=== PATIENT | female | born 1975 | race Caucasian/White ===

== ENCOUNTER 2025-04-19 08:09 | Inpatient (IN) | payer BC, SELFPAY ==
[2025-04-19] VITALS (9 sets, daily range): BP systolic 116–156; BP diastolic 70–105; PULSE 62–104; RESP 10–22; TEMP 36.4–37.1; O2SAT 98–100; BMI 20.1; BMI 22.5
--- NOTE | ~2025-04-19 | CT_ITS ---
EXAMINATION: CTA NECK WITH CONTRAST (STROKE) CTA BRAIN WITH CONTRAST (STROKE) CLINICAL INFORMATION: Seizure. Left-sided weakness. COMPARISON: Correlated to CT brain dated April 19, 2025. TECHNIQUE: CTA of the head and neck was performed in the axial plane from the mediastinum to the skull vertex using 70 mL Omnipaque 350 intravenous contrast. Additional reformatted multiplanar images including maximum intensity projection MIP images are generated on the CT workstation. This CT examination was performed using dose optimization techniques as appropriate, variously including the following: *Automated exposure control *Adjustment of mA and/or kV according to patient size (this includes techniques or standardized protocols for targeted exams where dose is matched to indication/reason for exam; i.e. extremities or head) *Use of iterative reconstruction technique DLP: 683 mGy centimeter. FINDINGS: The degree of stenosis determined by criteria similar to NASCET. Patient's motion artifact. Chest CTA: Normal diameter, normal patency without focal stenosis or intimal flap in the included aortic arch. Neck CTA: Right CCA: Normal patency. No focal stenosis. No intimal flap. Right ICA: Normal patency. No focal stenosis. No intimal flap. Left CCA: Normal patency. No focal stenosis. No intimal flap. Left ICA: Normal patency. No focal stenosis. No intimal flap. V1/V2 segments: Normal patency. No focal stenosis. No intimal flap. The origin is directly from the subclavian arteries. Codominant. Brain CTA: Anterior cerebral circulation: ICAs: Normal patency. No focal stenosis. No abrupt cut off. ICA terminus is normal, bilaterally. MCA's: Normal patency. No focal stenosis. No abrupt cut off. Bifurcation/trifurcation demonstrated no vascular irregularity. ACAs: Normal patency. No focal stenosis. No abrupt cut off. Anterior communicating artery is patent without vascular irregularity. Ophthalmic arteries are patent without vascular irregularity at the origin. Posterior communicating arteries are patent with small caliber and no vascular irregularity at the origin. Posterior cerebral circulation: V3/V4 segments: Normal patency. No focal stenosis. No intimal flap. Right posterior inferior cerebellar artery is patent and normal. There is a common trunk for the left anterior inferior and posterior inferior cerebellar arteries with normal patency. Basilar artery is patent without focal stenosis or intimal flap. Superior cerebellar arteries are patent. city dispatch supervisor: Normal patency. No focal stenosis. No abrupt cut off. Ancillary findings: Normal patency without intraluminal filling defects in the main cerebral venous sinuses. No gross abnormal enhancement in the intra-axial axial or extra-axial compartments of the cranium. Thyroid gland is small without dominant nodules. Status post ACDF C4 C6. Spondylosis C3-4 and C6-7. CT/CT angio head neck STROKE IMPRESSION: No main cerebral artery occlusion or embolus. No cerebral aneurysm. No high degree stenosis or dissection in the extracranial vessels. This critical test result is communicated to: Emergency department physician certified anesthesiologist assistant, Cecy Guzman via [employer] connect at 8:42 AM on April 19, 2025. Electronically signed by: Nicholas Alfred MD 04/19/2025 08:42 AM EDT
--- NOTE | ~2025-04-19 | MR_ITS ---
CLINICAL HISTORY: Headache; Blurry vision MR Brain without gadolinium Comparison: CT/SR - CT HEAD WITHOUT IV CONTRAST STROKE - 04/19/25 08:18 EDT Findings: No restricted diffusion (no acute ischemic event). No intra-axial mass or hemorrhage. No midline shift. No hydrocephalus. Vascular flow voids are intact. Orbital contents are unremarkable. The sinuses and mastoid air cells are clear. No focal bone lesion. IMPRESSION: Unremarkable brain MRI. This document has been electronically signed by: Charles Monahan MD on 04/19/2025 21:34:19
--- NOTE | ~2025-04-19 | CT_ITS ---
EXAMINATION: CT HEAD WITHOUT CONTRAST (STROKE PROTOCOL) CLINICAL INFORMATION: Seizure. Left-sided weakness. Concerning stroke COMPARISON: None available. TECHNIQUE: Contiguous axial imaging was performed from the skull base to vertex without intravenous administration of contrast. This CT examination was performed using dose optimization techniques as appropriate, variously including the following: *Automated exposure control *Adjustment of mA and/or kV according to patient size (this includes techniques or standardized protocols for targeted exams where dose is matched to indication/reason for exam; i.e. extremities or head) *Use of iterative reconstruction technique DLP: 643 mg centimeter. FINDINGS: Patient's motion artifact. No acute cortical disruption within the bony calvarium or the skull base. No acute intracranial hemorrhage, mass effect, midline shift, hydrocephalus or herniation. Kamara-white matter differentiation is normal. Posterior cranial fossa contents demonstrated no gross mass effect or hemorrhage. Normal position of the cerebellar tonsils. Sellar/suprasellar region demonstrated no gross masses. No air-fluid levels in the paranasal sinuses. Tympanic cavities and mastoid cells are aerated. No hematoma is in the intraconal or extraconal compartments of the cranium. CT/CT head for STROKE IMPRESSION: No acute fracture, bony calvarium. No acute intracranial hemorrhage. This critical result was communicated via [employer] with physician hospital administrative assistant in the emergency department, Cecy Guzman at 8:31 AM hours on April 19, 2025. It was ascertained that the content and urgency of the report was understood at the time of direct communication. Electronically signed by: Nicholas Alfred MD 04/19/2025 08:31 AM EDT
--- NOTE | 2025-04-19 08:18 | ECG_ITS ---
Test Reason : STROKE PROTOCOL Blood Pressure : */* mmHG Vent. Rate : 112 BPM Atrial Rate : 112 BPM P-R Int : 146 ms QRS Dur : 64 ms QT Int : 328 ms P-R-T Axes : 80 86 68 degrees QTcB Int : 447 ms Sinus tachycardia Possible Left atrial enlargement Septal infarct , age undetermined Abnormal ECG No previous ECGs available Referred By: Cecy Guzman Electronically Signed By: Trever Chavez
--- NOTE | 2025-04-19 08:29 | ED_ITS ---
HPI - Neuro Symptoms/Deficit General Chief Complaint: Stroke Stated Complaint: ?STROKE,LKWT/7:45,-THIN,L WEAK/DROOP Time Seen by Provider: 04/19/25 08:15 Source: patient, family (), EMS and old records reviewed Mode of arrival: EMS Limitations: no limitations History of Present Illness ED Provider: DR. 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 Patient stated no anticoagulation, no other medical issues. While patient getting a CT I was called into the CT table to evaluate the patient for a seizure, patient is AAO x3 aware that she is having shaking episode that she feels anxious, there is no LOC, no postictal symptoms, no urinary incontinence, no tonic-clonic movement, no tongue bite. Patient stated that usually stress or having her menstruation can trigger her symptoms and patient is having her menstruation Now. appeared in no concern of stroke. Related Data Allergies Allergy/AdvReac Type Severity Reaction Status Date / Time amitriptyline Allergy Unknown Unknown Verified 04/19/25 08:39 Review of Systems 2 Review of Systems: All other systems are reviewed and are negative Constitutional: Reports as per HPI and Reports no additional constitutional complaints Eyes: Reports as per HPI and Reports no additional eye complaints Reports system reviewed and no additional complaints, except as documented Cardiovascular: Reports as per HPI and Reports no additional cardiovascular complaints Respiratory: Reports as per HPI and Reports no additional respiratory complaints Gastrointestinal: Reports as per HPI and Reports no additional gastrointestinal complaints Genitourinary: Reports no additional female genitourinary complaints Musculoskeletal: Reports no additional musculoskeletal complaints Skin/Breast: Reports system reviewed and no additional complaints, except as docu Psychiatric: Reports no additional psychiatric complaints Endocrine: Reports no additional endocrine complaints Hematologic/Lymphatic: Reports no additional hematologic/lymphatic complaints Allergic/Immunologic: Reports no additional allergic/immunologic complaints Reports system reviewed and no additional complaints, except as documented and Reports Abnormal speech present [facility] Social History Social History Unable to assess alcohol history related to: Unknown Smoked in Last 30 Days: No Use of substances other than those prescribed or required for medical reasons: Unknown Advance Directives: Yes Advance Directives Information Provided: No Advance Directives on File: No Physical Exam 2 Vital Signs: Vital Signs: Last Vital Signs Temp 98.5 F 04/19/25 08:36 Pulse 89 04/19/25 10:30 Resp 16 04/19/25 10:30 BP 144/80 H 04/19/25 10:30 Pulse Ox 98 04/19/25 10:30 O2 Del Method Room Air 04/19/25 10:30 BMI result Body Mass Index 20.1 Vital signs have been reviewed and appear to be correct. Blood pressure elevated. Heart rate normal. Respiratory rate normal. Temperature normal. Oxygen saturation normal. Appearance: Alert. Oriented X3. No acute distress. Head: Normal external exam. Normocephalic. Atraumatic. No Matute signs noted. No raccoon eyes noted Eyes: PERRLA. EOMI. Conjunctiva and sclera normal. Eyelids normal. ENT: TM's Normal. Pharynx normal. Uvula midline. Moist mucous membranes. No trismus noted. No drooling noted. No muffled voice noted. Neck: Normal inspection. Neck supple. FROM. No adenopathy. Thyroid Normal. No meningeal signs. No neck mass noted. CVS: Normal heart rate and rhythm. Heart sound normal. No murmurs noted. Pulses normal throughout. Respiratory: No respiratory distress. Painless inspiration. Breath sounds normal. No wheezes/rales/rhonchi noted. Chest nontender. No accessory muscle usage noted or decreased air movement noted. Abdomen: Soft and nontender. Bowel sounds normal in all 4 quadrants. No distention noted. No organomegaly noted. No visible injury noted. Back: No CVA tenderness. Full range of motion noted. Skin: Skin warm and dry. Normal skin color. Normal skin turgor. No rashes/lesions/lacerations noted. Extremities: No lower extremity edema. Extremities exhibit normal range of motion. Extremities nontender. Neuro: Mental status: Normal attention, orientation, memory, and affect. Cranial nerves: Pupils are equal, round and reactive to light, EOMI, left facial hemiparesis, facial sensations are normal. Motor examination normal muscle tone, strength to 4 extremities, left hemiparesis.. DTR are +2, planter's are flexor. Sensory exam; normal coordination, no ataxia, gait stable. Cerebellar exam: Rfcizt-hu-nrqv and ukjp-yt-grqi is normal. Extrapyramidal system: No tremors, no rigidity with normal facial expressions. Pronator drift not present Course Reevaluation(s) Reevaluation #1: Case discussed with Dr. Dai patient is not a candidate for TNK, will treat underlying migraine. Time: 08:42 Reevaluation #2: Headache is better, patient's speech is improving, with improvement of the right hemiparesis, also at the bedside report improvement. Patient with a history of hemiplegic migraine making the patient not a candidate for TNK, the case was discussed and approved with Dr. Dai. Will admit the patient to medical floor for continuous neurological monitoring. Time: 12:16 Medications Administered Discontinued Medications Generic Name Dose Route Start Last Admin Trade Name Boubacar PRN Reason Stop Dose Admin Diazepam 10 mg 04/19/25 08:56 04/19/25 09:11 Diazepam 10 Mg/2 Ml Cartridge IVPUSH 04/19/25 08:57 10 mg STAT STA Administration Diphenhydramine HCl 25 mg 04/19/25 08:19 04/19/25 08:30 Diphenhydramine Hcl 50 Mg/Ml Vial IVPUSH 04/19/25 08:20 25 mg ONCE ONE Administration Hydromorphone HCl 1 mg 04/19/25 08:56 04/19/25 09:11 Hydromorphone Hcl 1 Mg/Ml Syringe IVPUSH 04/19/25 08:57 1 mg ONCE ONE Administration Protocol Hydromorphone HCl 1 mg 04/19/25 10:22 04/19/25 10:35 Hydromorphone Hcl 1 Mg/Ml Syringe IVPUSH 04/19/25 10:23 1 mg ONCE ONE Administration Protocol Sodium Chloride 1,000 mls @ 999 mls/hr 04/19/25 08:19 04/19/25 09:42 Ns IV 04/19/25 09:19 Infused .Q1H1M ONE Infusion Acetaminophen 1,000 mg in 100 mls @ 400 mls/hr 04/19/25 08:19 04/19/25 08:57 Ofirmev IV 04/19/25 08:33 Infused ONCE ONE Infusion Iohexol 100 ml 04/19/25 08:30 04/19/25 08:31 Iohexol 350 Mg/Ml 100 Ml Infus..Btl IV 04/19/25 08:31 70 ml ONCE ONE Administration Medical Decision Making Differential Diagnosis Differential Diagnoses: The differential diagnosis associated with the presentation includes (Hemorrhagic CVA, ischemic CVA, hemiplegic migraine, electrolyte derangement, severe anemia, ) Admission/Observation Consideration of admission/observation: Escalation of care including admission/observation considered Lab Data MDM Lab Attestation statement: I reviewed the patient's lab results. 04/19/25 08:49 04/19/25 08:49 Labs: Lab Results 04/19/25 04/19/25 04/19/25 Range/Units 08:11 08:20 08:49 WBC 4.9 (4.8-10.8) X10*3/uL RBC 3.97 L (4.20-5.50) X10*6/uL Hgb 12.5 (12.0-16.0) g/dl Hct 35.1 L (37.0-47.0) % MCV 88.4 (80.0-98.0) fL MCH 31.5 (27.0-33.0) pg MCHC 35.6 H (31.0-35.0) g/dl RDW 12.2 (11.0-16.0) % Plt Count 345 (160-400) X10*3/uL MPV 9.4 (9.4-12.3) fL Immature Gran % (Auto) 0.2 (0.0-0.4) % Neut % (Auto) 45.3 (45-73) % Lymph % (Auto) 45.4 H (20-40) % Bandera % (Auto) 7.5 (2-11) % Eos % (Auto) 0.8 (0-4) % Baso % (Auto) 0.8 (0-2) % Lymph # (Auto) 2.2 (1.2-4.9) X10*3/uL Bandera # (Auto) 0.4 (0.1-1.2) X10*3/uL Eos # (Auto) 0.0 (0.0-0.4) X10*3/uL Baso # (Auto) 0.0 (0.0-0.2) X10*3/uL Abs Immat Gran (auto) 0.01 (0.00-0.03) X10*3/uL Absolute Neuts (auto) 2.2 (2.0-8.3) x10*3/uL Absolute Nucleated RBC 0.000 (0.0-0.012) X10*3/uL Nucleated RBC % (auto) 0.0 (0.0-0.2) /100WBC PT 11.6 (10.9-12.4) SEC Whole Blood PT 11.8 (11.1-13.5) sec INR 1.0 (0.9-1.1) Whole Blood INR 1.0 (0.9-1.1) APTT 34.4 H (26.7-34.1) SEC Sodium 139 (135-145) mmol/L Potassium 4.1 (3.3-5.1) mmol/L Chloride 108 (96-108) mmol/L Carbon Dioxide 23 (22-29) mmol/L Anion Gap 12 (12-20) BUN 13 (9-16) mg/dL Creatinine 0.72 (0.5-1.4) mg/dL Estim Creat Clear Calc 69.4 Estimated GFR > 60 POC Glucose 73 (60-115) mg/dL Random Glucose 76 (60-115) mg/dL Calcium 9.0 (8.4-10.2) mg/dL Troponin I High Sens < 2.7 (<3.5-17.0) ng/L Triglycerides 58 (<150) mg/dL Cholesterol 153 (<200) mg/dL LDL Cholesterol, Calc 94 (<100) mg/dL HDL Cholesterol 48 (>40) mg/dL Independent Interpretation I performed an independent interpretation of an: CT Scan (Head/neck CTA/plain CT:No acute fracture, bony calvarium. No acute intracranial hemorrhage. No main cerebral artery occlusion or embolus. No cerebral aneurysm. No high degree stenosis or dissection in the extracranial vessels.) Radiology Impression Discussion of test interpretation with radiology: I have reviewed the radiologist's reading. NIH Stroke Scale Time: 08:39 Level of Consciousness: Alert Level of Consciousness Questions: Answers both questions correctly Level of Consciousness Commands: Performs both tasks correctly Best Gaze: Normal Visual: No visual loss Facial Palsy: Partial paralysis Motor Arm (Right): No drift Motor Arm (Left): Some effort against gravity Motor Leg (Right): No drift Motor Leg (Left): Some effort against gravity Limb Ataxia: Absent Sensory: Normal Best Language: Mild to moderate aphasia Dysarthia: Normal Extinction and Inattention: No abnormality Score: 7 Critical Care Time Critical Care Time Critical Care Time: Yes Total Critical Care Time: 60 Attestation: The patient was critically ill with a high probability of imminent or life- threatening deterioration. I spent greater than 30 minutes of discontinuous time evaluating the patient, delivering critical care at the bedside, discussing evaluating data with consultants. Critical care time does not include time spent performing separately billable procedures or teaching. Time spent performing critical care was 60 minutes. Discharge Plan Discharge Clinical Impression: Hemiplegic migraine Patient Disposition: Admitted As Inpatient Print Language: Sami
[2025-04-19 08:30] LABS: Prothrombin Time Whole Bld POC 11.8 sec (11.1-13.5); ~PT, ~INR - Anti Coag Clinic 1.0 (0.9-1.1)
[2025-04-19] MEDS: iohexoL 350 MG/ML 100 ML INFUS..BTL IV (08:31)
[2025-04-19 08:54] LABS: MANUAL DIFF FLAG NO
[2025-04-19 08:56] LABS: Hematocrit 35.1 % (37.0-47.0); Hemoglobin 12.5 g/dl (12.0-16.0); Imm Gran Abs Auto 0.01 X10*3/uL (0.00-0.03); Imm Gran Pct Auto 0.2 % (0.0-0.4); Lymphocytes Absolute Auto 2.2 X10*3/uL (1.2-4.9); Mean Corpuscular HGB Conc 35.6 g/dl (31.0-35.0); Mean Corpuscular Hemoglobin 31.5 pg (27.0-33.0); Mean Corpuscular Volume 88.4 fL (80.0-98.0); NRBC Abs Auto 0.000 X10*3/uL (0.0-0.012); NRBC Pct Auto 0.0 /100WBC (0.0-0.2); Platelet Count 345 X10*3/uL (160-400); Red Blood Count 3.97 X10*6/uL (4.20-5.50); White Blood Count 4.9 X10*3/uL (4.8-10.8)
[2025-04-19 09:02] LABS: INTERNATIONAL NORM RATIO 1.0 (0.9-1.1); Prothrombin Time 11.6 SEC (10.9-12.4)
[2025-04-19 09:05] LABS: Partial Thromboplastin Time 34.4 SEC (26.7-34.1); Stroke Lab Use COMPLETE
--- NOTE | 2025-04-19 09:09 | MHC.STROKE ---
Notified of Stroke Alert in ED. Met patient on EMS stretcher as she was heading into CT scan. Per EMS pt was at work and had sudden onset of left sided weakness and left sided facial droop. LKWT approx 0750. Upon further information gathering from spouse, pt has hx of hemiplegic migraines. He reports that she has had a migraine for approximately 3 days and utilizing OTC meds. She also uses Nurtec injections. Reports that she has fusions to her neck and that her doctors are investigating whether or not she has nerve impingement due to that. Stroke Education still reviewed with patient and spouse. Protocol explained. Pt/spouse agreeable to plan. Pt also noted to have mild tremors. Slight delay in obtaining CT due to question of seizure activity. DR. Mays went to CT scan and it was determined that the patient in fact was NOT having a seizure. Will continue to assist and provide education as needed. Dr. Dai was consulted on this case by DR. Mays. All parties agreeable to current plan in place. Pt is not a TNK candidate per neurology.
[2025-04-19 09:11] LABS: Anion Gap 12 (12-20); Blood Urea Nitrogen 13 mg/dL (9-16); Calcium 9.0 mg/dL (8.4-10.2); Carbon Dioxide 23 mmol/L (22-29); Chloride 108 mmol/L (96-108); Cholesterol 153 mg/dL (<200); Creatinine Clr Calc Pharmacy 69.4; Estimated Glomerular Filt Rate > 60; HDL Cholesterol 48 mg/dL (>40); Potassium 4.1 mmol/L (3.3-5.1); Sodium 139 mmol/L (135-145); Triglycerides 58 mg/dL (<150)
[2025-04-19] MEDS: diazePAM 10 MG/2 ML CARTRIDGE IVPUSH (09:11)
[2025-04-19 09:21] LABS: Troponin-I High Sensitivity < 2.7 ng/L (<3.5-17.0)
[2025-04-19 09:26] LABS: Glucose, Whole Blood 73 mg/dL (60-115)
--- OUTSIDE RECORDS SUMMARY | 2025-04-19 10:05 | XMS_ITS | Encounter Summary ---
Author Organization [facility] [place] [facility] Address [address] [place] [address] Care Team Providers Care Animal Chiropractor Name Role Phone Aramis Morales MD Primary Care Provider [phone] Encounter Details Date Type Department Care Team (Late st Contact Info) Description 01/18/2018 Scanned Document [facility] Neurosurgery [place] [address] [facility] 5 [place] [phone] Garrison Varghese MD [address] [place] [address] 5 [place] [address] Social History Tobacco Use Types Packs/Day Years Used Date Smoking Tobacco: Never Smokeless Tobacco: Never Alcohol Use Standard Drinks/Week Comments Yes 1 (1 standard drink = 0.6 oz pur e alcohol) Comments Unknown Sex and Gender Information Value Date Recorded Sex Assigned at Not on file Legal Sex Female 10:52 AM EDT Gender Identity Not on file Sexual Orientation Not on file documented as of this encounter Plan of Treatment Not on file documented as of this encounter Visit Diagnoses Not on filedocumented in this encounter Care Teams Animal Chiropractor Relationship Specialty Start Date End Date Aramis Morales MD [address] [place] [address] PCP - General Internal Medicine 03/16/17 documented as of this encounter
--- OUTSIDE RECORDS SUMMARY | 2025-04-19 10:05 | XMS_ITS | Encounter Summary ---
Author Organization [facility] Address [address] [place] [address] Care Team Providers Care Oral Surgery Technician Name Role Phone Aramis Morales MD Primary Care Provider [phone] Encounter Details Date Type Department Care Team (Latest Contact Info) Description 09/10/2017 Prep for Surgery [facility] Neurosurgery [place] [phone] Pina Orellana PA [address] [place] [id number] Sacroiliac dysfunction (Primary Dx) Social History Tobacco Use Types Packs/Day Years Used Date Smoking Tobacco: Never Assessed Comments Unknown Sex and Gender Information Value Date Recorded Sex Assigned at Not on file Legal Sex Female 10:52 AM EDT Gender Identity Not on file Sexual Orientation Not on file documented as of this encounter Plan of Treatment Not on file documented as of this encounter Visit Diagnoses Diagnosis Sacroiliac dysfunction- Primary Nonallopathic lesion of sacral region, not elsewhere classified documented in this encounter Care Teams Oral Surgery Technician Relationship Specialty Start Date End Date Aramis Morales MD [address] [place] [address] PCP - General Internal Medicine 03/16/17 documented as of this encounter
--- OUTSIDE RECORDS SUMMARY | 2025-04-19 10:05 | XMS_ITS | Encounter Summary ---
Author Organization [facility] Address [address] [place] [address] Care Team Providers Care Pcu Rn Name Role Phone Aramis Morales MD Primary Care Provider [phone] Encounter Details Date Type Department Care Team (Late st Contact Info) Description 10/25/2017 Scanned Document [facility] Neurosurgery [place] [address] [facility] [address] [place] [address] Garrison Varghese MD 35 [facility] 5 [place] [address] Social History Tobacco Use Types Packs/Day Years [...] on filedocumented in this encounter Care Teams Pcu Rn Relationship Specialty Start Date End Date Aramis Morales MD [address] [place] [address] PCP - General Internal Medicine 03/16/17 documented as of this encounter
--- OUTSIDE RECORDS SUMMARY | 2025-04-19 10:05 | XMS_ITS | Encounter Summary ---
Author Organization [facility] Address [address] [place] [address] Care Team Providers Care Assorter Name Role Phone Aramis Morales MD Primary Care Provider [phone] Encounter Details Date Type Department Care Team (Late st Contact Info) Description 01/17/2018 Scanned Document [facility] Neurosurgery [place] [phone] Pina Orellana PA [address] [place] [phone] Social History Tobacco Use Types Packs/Day Years [...] on filedocumented in this encounter Care Teams Assorter Relationship Specialty Start Date End Date Aramis Morales MD [address] [place] [address] PCP - General Internal Medicine 03/16/17 documented as of this encounter
--- OUTSIDE RECORDS SUMMARY | 2025-04-19 10:05 | XMS_ITS | Clinical Summary ---
Author Organization [facility] it Address [address] [place] [address] Care Team Providers Care Knife Cutter Name Role Phone Aramis Morales MD Primary Care Provider Unavaila ble Surgical History Surgery Date Site/Laterality Comments LEG SURGERY PROCEDURE: HISTORICAL LEG SURGERY; COMMENT: ACL replacement @ 17 yrs; RIGHT OTHER SURGICAL HISTORY PROCEDURE: ---- OTHER ----; COMMENT: heller myotomy OTHER SURGICAL HISTORY Left PROCEDURE: HISTORY OTHER; COMMENT: sacro iliac fusion 2017 OTHER SURGICAL HISTORY 2019 PROCEDURE: HISTORY OTHER; COMMENT: Anterior approach for cervical disc 2020 in [place] ESOPHAGOGASTRODUODENOSCOPY PROCEDURE: WI EGD TRANSORAL BIOPSY SINGLE/MULTIPLE; COMMENT: Performed by Dr. Ann on October 13, 2019 Medical History Medical History Date Comments Headache(784.0) 03/24/2009 DX:Headache(784. 0) Achalasia DX:Achalasia Heartburn DX:Heartburn Acid reflux DX:Acid reflux Esophagitis DX:Esophagitis Family History Medical History Relation Name Comments Heart attack Aunt 1 Maternal; 6 tot al; quadruple bypass Heart attack Aunt 2 Paternal; survi ann marie it; stents Heart attack Father Diabetes Father's side Dad's 2 sister s Heart failure Maternal Grandmother deceas ed age 50 Diabetes Mother Uterine cancer Mother Diabetes Mother's side Mom's sister a nd brother Heart failure Paternal Grandfather deceas ed age 62 Ovarian cancer Paternal Grandmother Heart attack Uncle 1 Maternal; decea sed Heart attack Uncle 2 Maternal; survi ann marie it Breast cancer Neg Hx Colon cancer Neg Hx Relation Name Status Comments Aunt 1 Aunt 2 Brother Alive complications d iverticulitis; liver disease; asthma Father Alive cardiac issues Father's side Maternal Grandfather Maternal Grandmother Mother Alive diabetic lactos e intol Mother's side Paternal Grandfather Paternal Grandmother Son Alive healthy Uncle 1 Uncle 2 Social History Tobacco Use Types Packs/Day Years Used Date Smoking Tobacco: Never Smokeless Tobacco: Never Alcohol Use Standard Drinks/Week Comments Yes 0 (1 standard drink = 0.6 oz pur e alcohol) Comments Unknown Sex and Gender Information Value Date Recorded Sex Assigned at Not on file Legal Sex Female 3:08 PM EST Gender Identity Not on file Sexual Orientation Not on file Obstetrics History Plan of Treatment Health Maintenance Due Date Last Done Comments Breast Cancer Screening 1977 Hepatitis B Vaccines (1 of 3 - 19+ 3-dose series) 1996 Pneumococcal Vaccine: Pediat rics (0 to 5 Years) and At-Risk Patients (6 to 49 Years) (1 of 2 - PCV) 1996 Cervical Cancer Screening: P ap Smear 1998 DTaP,Tdap,and Td Vaccines (2 - Td or Tdap) 02/19/2020 02/18/2010 Colorectal Cancer Screening: Colonoscopy 06/24/2022 HIV Screening 06/24/2022 Hepatitis C Screening 06/24/2022 Social Influencers of Health Screening 06/24/2022 Depression Screening 07/26/2024 COVID-19 Vaccine (1 - 2023-2 5 season) 2025 Influenza Vaccine (#1) 2025 HIB Vaccines Aged Out No longer eligi ble based on patient's age to complete this topic HPV Vaccines Aged Out No longer eligi ble based on patient's age to complete this topic Hepatitis A Vaccines Aged Out No long er eligible based on patient's age to complete this topic IPV Vaccines Aged Out No longer eligi ble based on patient's age to complete this topic MMR Vaccines Aged Out No longer eligi ble based on patient's age to complete this topic Meningococcal ACWY Vaccine Aged Out N o longer eligible based on patient's age to complete this topic Meningococcal B Vaccine Aged Out No l onger eligible based on patient's age to complete this topic RSV Immunization Patients Un renee 20 months Aged Out No longer eligible b ased on patient's age to complete this topic Varicella Vaccines Aged Out No longer eligible based on patient's age to complete this topic Advance Directives Documents on File Type Date Recorded Patient Material Expeditor Expl anation Health Care Decision (hx) 01/11/2017 AD TAYLOR DIRECTIVE Health Care Decision (hx) 01/11/2017 AD TAYLOR DIRECTIVE Care Teams Knife Cutter Relationship Specialty Start Date End Date Aramis Morales MD PCP - General 10/19/1997
--- OUTSIDE RECORDS SUMMARY | 2025-04-19 10:05 | XMS_ITS | Encounter Summary ---
Author Organization [facility] Address [address] [place] [address] Care Team Providers Care Automatic Buffer Name Role Phone Aramis Morales MD Primary Care Provider [phone] Encounter Details Date Type Department Care Team (Latest Contact Info) Description 04/12/2017 Prep for Surgery [facility] Neurosurgery [place] [phone] Pina Orellana PA [address] [place] [phone] Sacroiliac joint dysfunction of left side (Primary Dx) Social History Tobacco Use Types [...] of this encounter Visit Diagnoses Diagnosis Sacroiliac joint dysfunction of left side- Primary documented in this encounter Care Teams Automatic Buffer Relationship Specialty Start Date End Date Aramis Morales MD [address] [place] [address] PCP - General Internal Medicine 03/16/17 documented as of this encounter
--- OUTSIDE RECORDS SUMMARY | 2025-04-19 10:05 | XMS_ITS | Encounter Summary ---
Author Organization [facility] Address [address] [place] [address] Care Team Providers Care Electrician Technician Name Role Phone Aramis Morales MD Primary Care Provider [phone] Encounter Details Date Type Department Care Team (Late st Contact Info) Description 10/25/2017 Scanned Document [facility] Neurosurgery [place] 35 [facility] [address] [place] [address] Garrison Varghese MD 35 [facility] 5 [place] [address] Social History Tobacco Use Types Packs/Day Years [...] on filedocumented in this encounter Care Teams Electrician Technician Relationship Specialty Start Date End Date Aramis Morales MD [address] [place] [address] PCP - General Internal Medicine 03/16/17 documented as of this encounter
--- OUTSIDE RECORDS SUMMARY | 2025-04-19 10:05 | XMS_ITS | Encounter Summary ---
Author Organization [facility] Address [address] [place] [address] Care Team Providers Care Blackener Name Role Phone Aramis Morales MD Primary Care Provider [phone] Encounter Details Date Type Department Care Team (Late st Contact Info) Description 04/15/2017 Scanned Document [facility] Neurosurgery [address] [place] [address] Garrison Varghese MD 35 [facility] 5 [place] [address] Social History Tobacco Use Types Packs/Day Years [...] on filedocumented in this encounter Care Teams Blackener Relationship Specialty Start Date End Date Aramis Morales MD [address] [place] [address] PCP - General Internal Medicine 03/16/17 documented as of this encounter
--- OUTSIDE RECORDS SUMMARY | 2025-04-19 10:05 | XMS_ITS | Encounter Summary ---
Author Organization [facility] Address [address] [place] [address] Care Team Providers Care Checker Dump Grounds Name Role Phone Aramis Morales MD Primary Care Provider [phone] Encounter Details Date Type Department Care Team (Late st Contact Info) Description 08/14/2019 Scanned Document [facility] Neurosurgery [address] [phone] Social History Tobacco Use Types Packs/Day Years [...] on filedocumented in this encounter Care Teams Checker Dump Grounds Relationship Specialty Start Date End Date Aramis Morales MD [address] [place] [address] PCP - General Internal Medicine 03/16/17 documented as of this encounter
--- OUTSIDE RECORDS SUMMARY | 2025-04-19 10:05 | XMS_ITS | Encounter Summary ---
Author Organization [facility] Address [address] [place] [address] Care Team Providers Care Authorization Manager Name Role Phone Aramis Morales MD Primary Care Provider [phone] Encounter Details Date Type Department Care Team (Late st Contact Info) Description 02/01/2020 Scanned Document [facility] Neurosurgery [address] [phone] Social History Tobacco Use Types Packs/Day Years Used Date Smoking Tobacco: Never Smokeless Tobacco: Never Alcohol Use Standard Drinks/Week Comments Yes 1 (1 standard drink = 0.6 oz pur e alcohol) Comments No Sex and Gender Information Value Date Recorded Sex Assigned at Not on file Legal Sex Female 10:52 AM EDT Gender Identity Not on file Sexual Orientation Not on file COVID-19 Exposure Response Date Recorded In the last month, have you been in contact with someone who was confirmed or suspected to have Coronavirus / COVID-19? No / Unsure 02/01/2020 1:32 PM EDT documented as of this encounter Plan of Treatment Not on file documented as of this encounter Visit Diagnoses Not on filedocumented in this encounter Care Teams Authorization Manager Relationship Specialty Start Date End Date Aramis Morales MD [address] [place] [address] PCP - General Internal Medicine 03/16/17 documented as of this encounter
--- OUTSIDE RECORDS SUMMARY | 2025-04-19 10:05 | XMS_ITS | Encounter Summary ---
Author Organization [facility] Address [address] [place] [address] Care Team Providers Care Tile Picker Name Role Phone Aramis Morales MD Primary Care Provider [phone] Encounter Details Date Type Department Care Team (Late st Contact Info) Description 01/18/2018 Scanned Document [facility] Neurosurgery [place] 35 [facility] 5 [place] [phone] Garrison Varghese MD [address] [place] [address] 5 [place] [address] Social History Tobacco Use Types Packs/Day Years [...] on filedocumented in this encounter Care Teams Tile Picker Relationship Specialty Start Date End Date Aramis Morales MD [address] [place] [address] PCP - General Internal Medicine 03/16/17 documented as of this encounter
--- OUTSIDE RECORDS SUMMARY | 2025-04-19 10:05 | XMS_ITS | Encounter Summary ---
Author Organization [facility] Address [address] [place] [address] Care Team Providers Care Coverstitch Elastic Attacher Name Role Phone Aramis Morales MD Primary Care Provider [phone] Encounter Details Date Type Department Care Team (Late st Contact Info) Description 10/12/2017 Scanned Document [facility] Neurosurgery [address] [place] [address] Garrison Varghese MD 35 [facility] 5 [place] [address] Social History Tobacco Use Types Packs/Day Years [...] on filedocumented in this encounter Care Teams Coverstitch Elastic Attacher Relationship Specialty Start Date End Date Aramis Morales MD 4 [place] [address] PCP - General Internal Medicine 03/16/17 documented as of this encounter
--- OUTSIDE RECORDS SUMMARY | 2025-04-19 10:05 | XMS_ITS | Encounter Summary ---
Author Organization [facility] Address [address] [place] [address] Care Team Providers Care Golf Course Starter Name Role Phone Aramis Morales MD Primary Care Provider [phone] Encounter Details Date Type Department Care Team (Late st Contact Info) Description 08/06/2020 Scanned Document [facility] Neurosurgery [address] [phone] Social History Tobacco Use Types [...] on filedocumented in this encounter Care Teams Golf Course Starter Relationship Specialty Start Date End Date Aramis Morales MD [address] [place] [address] PCP - General Internal Medicine 03/16/17 documented as of this encounter
--- OUTSIDE RECORDS SUMMARY | 2025-04-19 10:05 | XMS_ITS | Encounter Summary ---
Author Organization [facility] Address [address] [place] [address] Care Team Providers Care General Utility Worker Name Role Phone Aramis Morales MD Primary Care Provider [phone] Encounter Details Date Type Department Care Team (Late st Contact Info) Description 08/15/2019 Scanned Document [facility] Neurosurgery [address] 5 [place] [phone] Katherine Robles MA [address] [place] [address] Social History Tobacco Use Types Packs/Day Years [...] on filedocumented in this encounter Care Teams General Utility Worker Relationship Specialty Start Date End Date Aramis Morales MD 4 [place] [address] PCP - General Internal Medicine 03/16/17 documented as of this encounter
--- OUTSIDE RECORDS SUMMARY | 2025-04-19 10:05 | XMS_ITS | Encounter Summary ---
Author Organization [facility] Address [address] [place] [address] Care Team Providers Care Mine Geologist Name Role Phone Aramis Morales MD Primary Care Provider [phone] Encounter Details Date Type Department Care Team (Late st Contact Info) Description 07/13/2019 Scanned Document [facility] Neurosurgery [address] [phone] Garrison Varghese MD [address] [place] [address] 5 [place] [address] Social History Tobacco Use Types Packs/Day Years [...] on filedocumented in this encounter Care Teams Mine Geologist Relationship Specialty Start Date End Date Aramis Morales MD 4 [place] [address] PCP - General Internal Medicine 03/16/17 documented as of this encounter
--- OUTSIDE RECORDS SUMMARY | 2025-04-19 10:05 | XMS_ITS | Encounter Summary ---
Author Organization [facility] Address [address] [place] [address] Care Team Providers Care Php Architect Name Role Phone Aramis Morales MD Primary Care Provider [phone] Encounter Details Date Type Department Care Team (Late st Contact Info) Description 08/11/2019 Scanned Document [facility] Neurosurgery [address] [phone] Social History Tobacco Use Types [...] on filedocumented in this encounter Care Teams Php Architect Relationship Specialty Start Date End Date Aramis Morales MD [address] [place] [address] PCP - General Internal Medicine 03/16/17 documented as of this encounter
--- OUTSIDE RECORDS SUMMARY | 2025-04-19 10:05 | XMS_ITS | Clinical Summary ---
Author Organization [facility] Address [address] [place] [address] Care Team Providers Care Training Lead Name Role Phone Aramis Morales MD Primary Care Provider [phone] Allergies Active Allergy Reactions Criticality Noted Date Comments Amitriptyline Delirium/Confusion/P sych osis Low 11/20/2010 Psychiatric side effects Medications albuterol (PROVENTIL) (0.083%) 2.5 mg/3 mL nebulizer solution Inhale 2.5 mg every 4 (four) hours as needed. 7 Active fluticasone (FloVENT HFA) 220 mcg/puff inhaler Inhale 2 puffs 2 (two) times a day. 7 Active albuterol (PROVENTIL HFA; VENTOLIN HFA) 108 (90 Base) MCG/ACT inhaler Inhale 2 puffs every 4 (four) hours as needed. 7 Active Multiple Vitamins-Minerals (MULTIVITAMIN WOMEN PO) Take 1 tablet by mouth daily. Active SUMAtriptan (IMITREX) 100 MG tablet Take 100 mg by mouth once as needed. 8 Active galcanezumab-gnlm (EMGALITY) 120 MG/ML injectionIndicatio ns:Migraine Inject 1 IM under the skin every 30 days (once a month). Usually on the 16th of the month 9 Active OMEprazole (PriLOSEC) 20 MG capsuleIndications :Cervical stenosis of spinal canal Take 1 capsule (20 mg total) by mouth 2 (two) times a day. 60 capsule 0 Active acetaminophen (TYLENOL) 325 MG tabletIndications: Cervical stenosis of spinal canal Take 3 tablets (975 mg total) by mouth every 6 (six) hours around the clock. 360 tablet 0 Active docusate sodium 100 MG CapIndications:Cer vical stenosis of spinal canal Take 100 mg by mouth 2 (two) times a day. 90 capsule 0 Active ondansetron (ZOFRAN-ODT) 4 MG disintegrating tabletIndications: Cervical stenosis of spinal canal Take 1 tablet (4 mg total) by mouth 4 times daily (every 6 hours) as needed for nausea or vomiting. Place tablet on tongue to dissolve. 25 tablet 0 Active sucralfate (CARAFATE) 1 GM/10ML suspensionIndicati ons:Esophageal achalasia Take 10 mL (1 g total) by mouth 4 (four) times a day before meals and nightly. On an empty stomach. 420 mL 1 0 Active methylPREDNISolone (MEDROL DOSEPAK) 4 MG tabletIndications: Cervical stenosis of spine follow package directions 1 tablet 0 Active oseltamivir (TAMIFLU) 75 MG capsule TAKE 1 CAPSULE BY MOUTH TWICE A DAY FOR 5 DAYS 0 Active lidocaine (LIDODERM) 5 % patchIndications:C ervical stenosis of spinal canal APPLY PATCH ONTO THE SKIN & LEAVE ON FOR 12HRS THEN REMOVE *PATCH MAY REMAIN ON SKIN FOR 12HRS/DAY 30 patch 1 0 Active misoprostol (CYTOTEC) [address] two tablets in each check and hold for 20-30 minutes and then swallow 0 Active baclofen (LIORESAL) 20 MG tabletIndications: Cervical stenosis of spinal canal TAKE 1 TABLET (20 MG TOTAL) BY MOUTH 3 (THREE) TIMES A DAY. 90 tablet 1 Active Active Problems Problem Noted Date Diagnosed Date Cervical stenosis of spine 08/23/2019 Cervical stenosis of spinal canal 06/19/2019 Aftercare following surgery 01/14/2018 History of abnormal cervical Pap smear 8 Overview (03/02/2018): Last Assessment & Plan: Aletha reports LEEP in [address] Pizano at [facility] for HPV ; she was not clear that she had abnormal pap as well. She reports normal paps since at frequent intervals - last pap with [facility] in 2016 per her report and recommendation for 3 year pap. Will get records to review dx/findings and confirm plan, including pap/HPV screen in 2019. 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 Immunizations Immunization Administration Dates Next Due Influenza Inactivated/Split Preservative Free IM 08/27/2019() Social History Tobacco Use Types Packs/Day Years Used Date Smoking Tobacco: Never Smokeless Tobacco: Never Alcohol Use Standard Drinks/Week Comments Yes 1 (1 standard drink = 0.6 oz pur e alcohol) Comments No Sex and Gender Information Value Date Recorded Sex Assigned at Not on file Legal Sex Female 10:52 AM EDT Gender Identity Not on file Sexual Orientation Not on file Last Filed Vital Signs Vital Sign Reading Time Taken Comments Blood Pressure 128/100 09/08/2019 9:27 AM EST Pulse 76 09/08/2019 9:27 AM EST Temperature 37.1 C (98.7 F) 08/27/2019 2:36 PM EST Respiratory Rate 18 08/27/2019 2:36 PM EST Oxygen Saturation 96% 08/27/2019 2:36 PM EST Inhaled Oxygen Concentration - - Weight 71.2 kg (157 lb) 09/08/2019 9:27 AM EST Height 153.9 cm (5' 0.6 ) 09/08/2019 9:27 AM EST Body Mass Index 30.06 09/08/2019 9:27 AM EST Plan of Treatment Health Maintenance Due Date Last Done Comments Hepatitis C Virus Screening 1977 DTaP/Tdap/Td Vaccines (1 - Tdap) 1996 Hepatitis B Vaccines (1 of 3 - 19+ 3-dose series) 1996 Pap Smear (Ages 21-65) 1998 Mammogram 2017 Colonoscopy 2022 Influenza Vaccine 02/23/2025 COVID-19 Vaccine ( - 2023-2 5 season) 2025 HIV Screening Completed 02/02/2020 Pneumococcal Vaccine: Pediat zion (0-5 Years) and At-Risk Patients (6 to 49 Years) Aged Out No longer eligible b ased on patient's age to complete this topic Medical Devices Implanted Type Area Human Resources Clerk Device Identifier Shelf Expiration Date Model / Serial / Lot [id number] Cage Cervical Hijak [employer] [id number] - [id number] Implanted:Qty: 2 on 08/23/2019 by Garrison Varghese MD at [facility] Plate [employer] [id number] / / [id number] Plate Spine Cervical Anterior [id number] 2 Lvl 14mm Prebnt - [id number] Implanted:Qty: 1 on 08/23/2019 by Garrison Varghese MD at [facility] Plate [employer] - A MELVI AN [id number] / / [id number] Screw Bone Spine Ilium Pdcl Cd Hzn Lgc 14mm Ti Distraction - Sna Implanted:Qty: 2 on 08/23/2019 by Garrison Varghese MD at [facility] Spine [employer] MINIMALLY INVASIVE T 11/23/2021 [id number] / [id number] / [id number] Screw Bone Spine Cervical Anterior [place] 16mm Ti 4mm Self - [id number] Implanted:Qty: 4 on 08/23/2019 by Garrison Varghese MD at [facility] Spine [employer] - A MELVI AN [id number] / / [id number] Screw Bone Spine [place] 20- D 14mm Ti 4mm Self [place]ill [place] - [id number] Implanted:Qty: 2 on 08/23/2019 by Garrison Varghese MD at [facility] Spine [employer] - A MELVI AN [id number] / / Graft Bone Accell Dispersed Dbm 2.5ml Putty Void Filler - [id number] Implanted:Qty: 1 on 08/23/2019 by Garrison Varghese MD at [facility] Tissue SE[employer] 07/22/2020 / [id number] / [id number] Ifuse-3d Implanted:Qty: 1 on 11/17/2017 by Garrison Varhgese MD at [facility] Other 12/28/2022 [id number] / [id number] / [id number] Description:ifuse implnant s ystem [id number] implant Ifuse-3d [id number] Implant Implanted:Qty: 2 on 11/17/2017 by Garrison Varghese MD at [facility] Other 04/19/2022 [id number] / / [id number] Description:REF [facility] Insurance UMR LUCINDA STEINBERG [id number] UMR Advance Directives * Full Code (Latest Code Status on File) Date Activated Date Inactivated Comments 08/23/2019 6:34 PM * Full Code Date Activated Date Inactivated Comments 08/23/2019 10:40 AM 08/23/2019 6:34 PM * Full Code Date Activated Date Inactivated Comments 11/17/2017 2:47 PM 08/23/2019 9:02 AM * Full Code Date Activated Date Inactivated Comments 11/17/2017 7:23 AM 11/17/2017 2:47 PM Care Teams Training Lead Relationship Specialty Start Date End Date Aramis Morales MD [address] [place] [address] PCP - General Internal Medicine 03/16/17
--- OUTSIDE RECORDS SUMMARY | 2025-04-19 10:05 | XMS_ITS | Encounter Summary ---
Author Organization [facility] Address [address] [place] [address] Care Team Providers Care Quality Assurance Coordinator Name Role Phone Aramis oMrales MD Primary Care Provider [phone] Encounter Details Date Type Department Care Team (Late st Contact Info) Description 01/18/2018 Scanned Document [facility] Neurosurgery [place] 35 [facility] 5 [place] [phone] Garrison Varghese MD [address] [place] [address] 5 [place] [address] Social History Tobacco Use Types Packs/Day Years [...] on filedocumented in this encounter Care Teams Quality Assurance Coordinator Relationship Specialty Start Date End Date Aramis Morales MD [address] [place] [address] PCP - General Internal Medicine 03/16/17 documented as of this encounter
--- OUTSIDE RECORDS SUMMARY | 2025-04-19 10:05 | XMS_ITS | Encounter Summary ---
Author Organization [facility] Address [address] [place] [address] Care Team Providers Care Money Market Dealer Name Role Phone Aramis Morales MD Primary Care Provider [phone] Encounter Details Date Type Department Care Team (Late st Contact Info) Description 08/09/2017 Scanned Document [facility] Neurosurgery [address] 5 [place] [address] Garrison Varghese MD 35 [facility] 5 [place] [address] Social History Tobacco Use Types Packs/Day Years [...] on filedocumented in this encounter Care Teams Money Market Dealer Relationship Specialty Start Date End Date Aramis Morales MD 4 [place] [address] PCP - General Internal Medicine 03/16/17 documented as of this encounter
--- OUTSIDE RECORDS SUMMARY | 2025-04-19 10:05 | XMS_ITS | Encounter Summary ---
Author Organization [facility] Address [address] [place] [address] Care Team Providers Care Boat Hoist Operator Helper Name Role Phone Aramis Morales MD Primary Care Provider [phone] Encounter Details Date Type Department Care Team (Late st Contact Info) Description 08/15/2019 Scanned Document [facility] Neurosurgery [address] 5 [place] [phone] Katherine Robles MA [address] [place] [address] Social History Tobacco Use Types Packs/Day Years [...] on filedocumented in this encounter Care Teams Boat Hoist Operator Helper Relationship Specialty Start Date End Date Aramis Morales MD 4 [place] [address] PCP - General Internal Medicine 03/16/17 documented as of this encounter
--- OUTSIDE RECORDS SUMMARY | 2025-04-19 10:05 | XMS_ITS | Encounter Summary ---
Author Organization [facility] Address [address] [place] [address] Care Team Providers Care Boom Stick Man Name Role Phone Aramis Morales MD Primary Care Provider [phone] Encounter Details Date Type Department Care Team (Late st Contact Info) Description 08/09/2017 Scanned Document [facility] Neurosurgery [address] 5 [place] [address] Garrison Varghese MD 35 [facility] 5 [place] [address] Social History Tobacco Use Types Packs/Day Years [...] on filedocumented in this encounter Care Teams Boom Stick Man Relationship Specialty Start Date End Date Aramis Morales MD [address] [place] [address] PCP - General Internal Medicine 03/16/17 documented as of this encounter
--- OUTSIDE RECORDS SUMMARY | 2025-04-19 10:05 | XMS_ITS | Encounter Summary ---
Author Organization [facility] Address [address] [place] [address] Care Team Providers Care Infection Control Rn Name Role Phone Aramis Morales MD Primary Care Provider [phone] Encounter Details Date Type Department Care Team (Late st Contact Info) Description 12/22/2017 Scanned Document [facility] Neurosurgery [address] [address] [place], [place] [address] [address] Social History Tobacco Use Types Packs/Day Years [...] on filedocumented in this encounter Care Teams Infection Control Rn Relationship Specialty Start Date End Date Aramis Morales MD [address] [place] [address] PCP - General Internal Medicine 03/16/17 documented as of this encounter
--- OUTSIDE RECORDS SUMMARY | 2025-04-19 10:05 | XMS_ITS | Encounter Summary ---
Author Organization [facility] Address [address] [place] [address] Care Team Providers Care Miner Name Role Phone Aramis Morales MD Primary Care Provider [phone] Encounter Details Date Type Department Care Team (Late st Contact Info) Description 11/18/2017 Scanned Document [facility] Neurosurgery [place] 35 [facility] 5 [place] [phone] Garrison Varghese MD [address] [place] [address] 5 [place] [address] Social History Tobacco Use Types Packs/Day Years [...] on filedocumented in this encounter Care Teams Miner Relationship Specialty Start Date End Date Aramis Morales MD [address] [place] [address] PCP - General Internal Medicine 03/16/17 documented as of this encounter
--- OUTSIDE RECORDS SUMMARY | 2025-04-19 10:05 | XMS_ITS | Encounter Summary ---
Author Organization [facility] Address [address] [place] [address] Care Team Providers Care Motion Picture Printer Name Role Phone Aramis Morales MD Primary Care Provider [phone] Encounter Details Date Type Department Care Team (Late st Contact Info) Description 04/15/2017 Scanned Document [facility] Neurosurgery [address] 5 [place] [address] Garrison Varghese MD 35 [facility] 5 [place] [address] Social History Tobacco Use Types Packs/Day Years [...] on filedocumented in this encounter Care Teams Motion Picture Printer Relationship Specialty Start Date End Date Aramis Morales MD 4 [place] [address] PCP - General Internal Medicine 03/16/17 documented as of this encounter
--- OUTSIDE RECORDS SUMMARY | 2025-04-19 10:05 | XMS_ITS | Encounter Summary ---
Author Organization [facility] Address [address] [place] [address] Care Team Providers Care Nutrition Representative Name Role Phone Aramis Morales MD Primary Care Provider [phone] Encounter Details Date Type Department Care Team (Late st Contact Info) Description 04/15/2017 Scanned Document [facility] Neurosurgery [address] 5 [place] [address] Garrison Varghese MD 35 [facility] 5 [place] [address] Social History Tobacco Use Types Packs/Day Years [...] on filedocumented in this encounter Care Teams Nutrition Representative Relationship Specialty Start Date End Date Aramis Morales MD 4 [place] [address] PCP - General Internal Medicine 03/16/17 documented as of this encounter
--- OUTSIDE RECORDS SUMMARY | 2025-04-19 10:05 | XMS_ITS | Encounter Summary ---
Author Organization [facility] Address [address] [place] [address] Care Team Providers Care Circular Head Saw Operator Name Role Phone Aramis Morales MD Primary Care Provider [phone] Encounter Details Date Type Department Care Team (Late st Contact Info) Description 07/17/2019 Scanned Document [facility] Neurosurgery [address] [address] Social History Tobacco Use Types [...] on filedocumented in this encounter Care Teams Circular Head Saw Operator Relationship Specialty Start Date End Date Aramis Morales MD [address] [place] [address] PCP - General Internal Medicine 03/16/17 documented as of this encounter
--- OUTSIDE RECORDS SUMMARY | 2025-04-19 10:05 | XMS_ITS | Encounter Summary ---
Author Organization [facility] Address [address] [place] [address] Care Team Providers Care Ems Instructor Name Role Phone Aramis Morales MD Primary Care Provider [phone] Encounter Details Date Type Department Care Team (Late st Contact Info) Description 12/23/2017 Scanned Document [facility] Neurosurgery [place] 35 [facility] 5 [place] [phone] Garrison Varghese MD [address] [place] [address] 5 [place] [address] Social History Tobacco Use Types Packs/Day Years [...] on filedocumented in this encounter Care Teams Ems Instructor Relationship Specialty Start Date End Date Aramis Morales MD [address] [place] [address] PCP - General Internal Medicine 03/16/17 documented as of this encounter
--- OUTSIDE RECORDS SUMMARY | 2025-04-19 10:05 | XMS_ITS | Encounter Summary ---
Author Organization [facility] Address [address] [place] [address] Care Team Providers Care Field Appraiser Name Role Phone Aramis Morales MD Primary Care Provider [phone] Encounter Details Date Type Department Care Team (Late st Contact Info) Description 07/10/2019 Scanned Document [facility] Neurosurgery [address] [phone] Social History Tobacco Use Types [...] on filedocumented in this encounter Care Teams Field Appraiser Relationship Specialty Start Date End Date Aramis Morales MD [address] [place] [address] PCP - General Internal Medicine 03/16/17 documented as of this encounter
--- OUTSIDE RECORDS SUMMARY | 2025-04-19 10:05 | XMS_ITS | Encounter Summary ---
Author Organization [facility] Address [address] [place] [address] Care Team Providers Care Secondary Special Education Teacher Name Role Phone Aramis Morales MD Primary Care Provider [phone] Encounter Details Date Type Department Care Team (Late st Contact Info) Description 10/25/2017 Scanned Document [facility] Neurosurgery [place] 35 [facility] [address] [place] [address] Garrison Varghese MD 35 [facility] 5 [place] [address] Social History Tobacco Use Types Packs/Day Years [...] on filedocumented in this encounter Care Teams Secondary Special Education Teacher Relationship Specialty Start Date End Date Aramis Morales MD 4 [place] [address] PCP - General Internal Medicine 03/16/17 documented as of this encounter
--- OUTSIDE RECORDS SUMMARY | 2025-04-19 10:05 | XMS_ITS | Encounter Summary ---
Author Organization [facility] Address [address] [place] [address] Care Team Providers Care Parts Runner Name Role Phone Aramis Morales MD Primary Care Provider [phone] Encounter Details Date Type Department Care Team (Late st Contact Info) Description 11/09/2017 Scanned Document [facility] Neurosurgery [place] [address] [facility] 5 [place] [address] Garrison Varghese MD 35 [facility] 5 [place] [address] Social History Tobacco Use Types Packs/Day Years [...] on filedocumented in this encounter Care Teams Parts Runner Relationship Specialty Start Date End Date Aramis Morales MD [address] [place] [address] PCP - General Internal Medicine 03/16/17 documented as of this encounter
--- OUTSIDE RECORDS SUMMARY | 2025-04-19 10:05 | XMS_ITS | Encounter Summary ---
Author Organization [facility] Address [address] [place] [address] Care Team Providers Care Manager Case Name Role Phone Aramis Morales MD Primary Care Provider [phone] Encounter Details Date Type Department Care Team (Late st Contact Info) Description 11/24/2017 Scanned Document [facility] Neurosurgery [address] [address] [place], [place] [address] [address] Social History Tobacco Use Types Packs/Day Years [...] on filedocumented in this encounter Care Teams Manager Case Relationship Specialty Start Date End Date Aramis Morales MD [address] [place] [id number] PCP - General Internal Medicine 03/16/17 documented as of this encounter
--- OUTSIDE RECORDS SUMMARY | 2025-04-19 10:05 | XMS_ITS | Encounter Summary ---
Author Organization [facility] Address [address] [place] [address] Care Team Providers Care Heel Turner Name Role Phone Aramis Morales MD Primary Care Provider [phone] Encounter Details Date Type Department Care Team (Late st Contact Info) Description 08/14/2019 Scanned Document [facility] Neurosurgery [address] [id number] Social History Tobacco Use Types [...] on filedocumented in this encounter Care Teams Heel Turner Relationship Specialty Start Date End Date Aramis Morales MD [address] [place] [address] PCP - General Internal Medicine 03/16/17 documented as of this encounter
--- NOTE | 2025-04-19 12:51 | PM.NEUROCN ---
History of Present Illness Data of Consult Service Date: 04/19/25 Primary Care Provider: Pricila Ellis PA-C HPI Reason for consult: Hemiparesis Aletha is a 49-year-old female patient with a past medical history of hemiplegic migraine who was brought in to the emergency room from work for left-sided hemiparesis and slurred speech. This episode started approximately 20 minutes before coming to the hospital while she was at work. Leading up to this event, she and her do report that she had several visual auras and related migraine headaches days leading up to today. She is currently on her menses and prior migraine episodes have worsened during the time of her menses. She is currently working with a neurologist, Dr. Almeida who has her on Ajovy 225 mg once monthly injections for prevention and Nurtec 75 mg as needed. She has also tried Emgality in the past which seemed to work well however she stopped it due to a and her insurance would no longer cover it. Ajovy seemingly has been working well to control her migraines however over the course of last few months she has been averaging 5 migraines per month. Again, she has had several hemiplegic migraines in the past with her initial migraine presenting with bilateral paresthesias and subsequent hemiplegic migraines presenting as left-sided hemiparesis with slurred speech, and left-sided facial droop. Her workup has so far included a CT head and CTA head and neck both of which were nonacute. It is unclear whether or not she has had a recent MRI of the brain at an outside facility. While in our CT scanner, she was noted to have a shaking episode. The patient stated that she felt anxious. There was no LOC, no postictal symptoms, no urinary incontinence, no tonic-clonic movement, or tongue biting. She has received Valium, Dilaudid, and Benadryl during her visit here and is currently drowsy though she is able to provide some of her history with the assistance from her . Review of Systems Review of Systems: Yes all other systems are reviewed and are negative Neurologic: Reports Sensory deficit (Neuro) (Left upper and lower extremity anesthesia of skin.) [facility] Social History Social History Unable to assess alcohol history related to: Unknown Smoked in Last 30 Days: No Use of substances other than those prescribed or required for medical reasons: Unknown Advance Directives: Yes Advance Directives Information Provided: No Advance Directives on File: No Meds Allergies Allergy/AdvReac Type Severity Reaction Status Date / Time amitriptyline Allergy Unknown Unknown Verified 04/19/25 08:39 Home Medications ?Medication ?Instructions ?Recorded ?Confirmed ?Last Taken ?Type fluoride (sodium) 1.1 % dental 1 appl PO DAILY 04/19/25 Unknown History paste fremanezumab-vfrm 225 mg/1.5 mL 225 mg subcut Q28D 04/19/25 Unknown History subcutaneous auto-injector (Ajovy) meloxicam 7.5 mg tablet 7.5 mg PO DAILY PRN low back pain 04/19/25 Unknown History rimegepant 75 mg disintegrating 75 mg PO ONCE PRN migraine 04/19/25 Unknown History tablet (Nurtec ODT) semaglutide (weight loss) 2.4 2.4 mg subcut QWEEK 04/19/25 Unknown History mg/0.75 mL subcutaneous pen injector (Wegovy) Physical Exam Vital Signs: Vital Signs: Last Vital Signs Temp 98.5 F 04/19/25 08:36 Pulse 89 04/19/25 10:30 Resp 16 04/19/25 10:30 BP 144/80 H 04/19/25 10:30 Pulse Ox 98 04/19/25 10:30 O2 Del Method Room Air 04/19/25 10:30 BMI result Body Mass Index 20.1 Const: Orientation/consciousness: oriented to person, oriented to place and oriented to time HEENT: Mouth: other (Left facial droop) Back/Spine/Pelvis: Cervical Spine: cervical spasm Neuro: General: oriented to person, oriented to place, oriented to time and Unable to assess gait Cranial nerves: No Facial sensation intact/muscles of mastication intact (Left sided anesthesia v1-v3 (greatest at v2-v3)) and Yes Other cranial nerve findings present (L facial droop) Speech: Other speech findings present (Neuro) (slow) Gait exam (Neuro): Unable to assess gait Motor exam (neuro): strength not 5/5 throughout and Other motor observations present (Left hemiparesis- upper and lower extremity) Sensory Exam: Sensory deficit (Neuro) (Left upper and lower extremity anesthesia of skin.) Deep tendon reflexes (DTR's): Right triceps reflex intensity grade: 2+, Left triceps reflex intensity grade: 2+, Rt Biceps (C5, C6): 2+, Left biceps reflex intensity grade: 2+, Right brachioradialis reflex intensity grade: 2+, Left brachioradialis reflex intensity grade: 2+, Right patellar reflex intensity grade: 2+, Left patellar reflex intensity grade: 2+, Right ankle reflex intensity grade: 2+ and Left ankle reflex intensity grade: 2+ Plantar Reflex Responses: equivocal: bilateral Psych: Affect: normal affect Attitude: cooperative Results Labs 04/19/25 08:49 04/19/25 08:49 Labs: Short CBC 04/19/25 Range/Units 08:49 WBC 4.9 (4.8-10.8) X10*3/uL Hgb 12.5 (12.0-16.0) g/dl Hct 35.1 L (37.0-47.0) % Plt Count 345 (160-400) X10*3/uL BMP 04/19/25 08:49 Sodium 139 Potassium 4.1 Chloride 108 Carbon Dioxide 23 BUN 13 Creatinine 0.72 Calcium 9.0 Assessment and Plan (1) Hemiplegic migraine: Status: Acute Plan Aletha is a 49-year-old female patient with a past medical history of hemiplegic migraine who was brought in to the emergency room from work for left-sided hemiparesis and slurred speech. Her presentation is consistent with her prior history of hemiplegic migraine. CT and CTA imaging nonacute. I would however recommend non-contrast MRI of the brain if she has not had a recent MRI scan. She is currently still experiencing hemiparesis and becoming uncomfortable. If hemiparesis continues, could consider Depakote 500 mg IVP. Patient however is quite somnolent and therefore this should be considered before administration. Episodes have seemingly been triggered by hormonal fluctuations. She is currently on her menses. Other things that she be considered include autoimmune disorders. I will order an DOMINIK, double-stranded DNA, and ESR. Patient plans to follow up with her neurologist outpatient where they can consider/discuss other means of preventive therapies. Procedures Date of Service Date of Service: 04/19/25
--- NOTE | 2025-04-19 14:08 | PM.IMHP ---
History of Present Illness Date of Service: 04/19/25 Attending physician on admission: Kavin Tran Chief Complaint: left side weakness This is a 49-year-old female with history of cervical spine fusion and hemiplegic migraines who presents to the emergency department with left-sided weakness. 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 She received IV Dilaudid, IV Benadryl, IV Valium but continued to have persistent symptoms. She reports having increasing frequency in her migraines., she has had 3 or 4 hemiplegic migraines in the past 3-1/2 years. Overall her migraines seem to improve after she had fusion of C4-C6 in 2019 but over the past few months her symptoms seem to be worsening. She follows with Neurology at [facility]. Her brain MRI 6 months ago was reportedly stable. Due to persistent symptoms she will be admitted for further management. Review of Systems Review of Systems: Yes all other systems are reviewed and are negative Constitutional: Constitutional: Denies chills and Denies fever(s) Cardiovascular: Cardiovascular: Denies chest pain and Denies palpitations Endocrine: Endocrine: Denies palpitations PMFSH Medical History Hemiplegic migraine GERD (gastroesophageal reflux disease) Achalasia Migraine Social History Alcohol intake: current Alcohol intake frequency: holidays/special occasions only Patient Tobacco Use Status: Never used Tobacco Meds Allergies Allergy/AdvReac Type Severity Reaction Status Date / Time amitriptyline Allergy Unknown Unknown Verified 04/19/25 08:39 Active Medications: Current Medications Acetaminophen (Acetaminophen 325 Mg Tablet) 650 mg PO Q6H PRN PRN Reason: Pain, Mild 1-3,fever,headache Calcium Carbonate (Calcium Carbonate 750 Mg Tab.Chew) 750 mg PO Q4H PRN PRN Reason: Heartburn Magnesium Hydroxide (Milk Of Magnesia 30 Ml Oral.Susp) 30 ml PO DAILY PRN PRN Reason: Constipation Melatonin (Melatonin 3 Mg Tablet) 6 mg PO BEDTIME PRN PRN Reason: Insomnia Sodium Chloride (0.9 % Sodium Chloride Flush 3 Ml Syringe) 3 ml IVFLUSH QSHIFT STACY Home Medications ?Medication ?Instructions ?Recorded ?Confirmed ?Last Taken ?Type fremanezumab-vfrm 225 mg/1.5 mL 225 mg subcut Q28D 04/19/25 Unknown History subcutaneous auto-injector (Ajovy) meloxicam 7.5 mg tablet 7.5 mg PO DAILY PRN low back pain 04/19/25 Unknown History omeprazole 20 mg tablet,delayed 20 mg PO BID 04/19/25 04/19/25 04/19/25 History release rimegepant 75 mg disintegrating 75 mg PO ONCE PRN migraine 04/19/25 Unknown History tablet (Nurtec ODT) semaglutide (weight loss) 2.4 2.4 mg subcut QWEEK 04/19/25 Unknown History mg/0.75 mL subcutaneous pen injector (Wegovy) Physical Exam Vital Signs and Narrative: Vital Signs: Last Vital Signs Temp 98 F 04/19/25 13:22 Pulse 78 04/19/25 13:22 Resp 18 04/19/25 13:22 BP 120/79 04/19/25 13:22 Pulse Ox 98 04/19/25 13:22 O2 Del Method Room Air 04/19/25 13:22 BMI result Body Mass Index 20.1 Const: General: alert and awake Nutritional Appearance: thin Orientation/consciousness: patient oriented x3 Resp: Effort & Inspection: normal respiratory effort, able to speak in complete sentences, no respiratory distress and no use of accessory muscles Cardio: Rate: regular rate GI: Inspection: No distended Palpation (GI): Soft to palpation Neuro: Other: unable to move left arm or left leg; left facial droop General: patient oriented x3 Results Labs 04/19/25 08:49 04/19/25 08:49 Labs: Laboratory Results - last 24 hr 04/19/25 04/19/25 04/19/25 08:11 08:20 08:49 MCV 88.4 MCH 31.5 MCHC 35.6 H RDW 12.2 Plt Count 345 MPV 9.4 Immature Gran % (Auto) 0.2 Neut % (Auto) 45.3 Lymph % (Auto) 45.4 H Mason % (Auto) 7.5 Eos % (Auto) 0.8 Baso % (Auto) 0.8 Lymph # (Auto) 2.2 Mason # (Auto) 0.4 Eos # (Auto) 0.0 Baso # (Auto) 0.0 Abs Immat Gran (auto) 0.01 Absolute Neuts (auto) 2.2 Absolute Nucleated RBC 0.000 Nucleated RBC % (auto) 0.0 PT 11.6 Whole Blood PT 11.8 INR 1.0 Whole Blood INR 1.0 APTT 34.4 H Anion Gap 12 Estim Creat Clear Calc 69.4 Estimated GFR > 60 POC Glucose 73 Random Glucose 76 Calcium 9.0 Troponin I High Sens < 2.7 Triglycerides 58 Cholesterol 153 LDL Cholesterol, Calc 94 HDL Cholesterol 48 Imaging Radiologist's Impressions: Impressions Head CT 04/19/25 08:18 IMPRESSION: No acute fracture, bony calvarium. No acute intracranial hemorrhage. This critical result was communicated via [employer] connect with physician assistant director of plant operations in the emergency department, Cecy Guzman at 8:31 AM hours on April 19, 2025. It was ascertained that the content and urgency of the report was understood at the time of direct communication. Electronically signed by: Nicholas Alfred MD 04/19/2025 08:31 AM EDT RP Head/Neck CTA 04/19/25 08:22 IMPRESSION: No main cerebral artery occlusion or embolus. No cerebral aneurysm. No high degree stenosis or dissection in the extracranial vessels. This critical test result is communicated to: Emergency department physician assistant director of plant operations, Cecy Guzman via [employer] connect at 8:42 AM on April 19, 2025. Electronically signed by: Nicholas Alfred MD 04/19/2025 08:42 AM EDT RP Assessment and Plan (1) Hemiplegic migraine: Status: Acute Plan This is a 49-year-old female with a history of hemiplegic migraine, cervical spine fusion from C4-C6 who presents to the emergency department with migraine and left hemiparesis Left-sided weakness Likely due to hemiplegic migraine No improvement with Dilaudid/Valium/Benadryl in the ED will treat with p.r.n. Fioricet, Toradol will attempt to obtain records from [facility] where she follows with Neurology Seen by neurology, no need for further imaging at this time, if worsening neurological symptoms, we will consider inpatient brain MRI Follow Neuro checks GERD Continue baseline medications DVT prophylaxis-mechanical devices Quality Stroke Does the patient have a stroke diagnosis?: No VTE Prior VTE?: No VTE Risk Level:: Medical - moderate - high VTE Device Contraindication: N/A - Device Ordered VTE Drug Contraindication: Treatment Not Indicated
--- NOTE | 2025-04-19 14:21 | PHA.MEDREC ---
Addendum entered by Celia Howard RPh 04/19/25 15:08: MED REC REVIEWED BY [facility] Louise verified with patient again that she is taking pulmicort 90 mcg 1 puff daily and patient said she fills at [facility] even though there is no recent pharmacy claim for it. Original Note: Pharmacy Consult ? Medication Reconciliation Pharmacy has completed the medication reconciliation. Spoke to patient and at bedside to confirm med list. confirmed Ajovy 225 mg p07veik, last dose 04/13/25, and Wegovy 2.4 mg every Wednesday, last dose 04/15/25. Patient states she takes Pulmicort inhaler however there is no claim history per [facility].
--- NOTE | 2025-04-19 14:28 | PC.NURSE ---
RN attempted bedside swallow. pt and do not feel comfortable attempting. ERUM gage made aware, requesting ST eval.
[2025-04-19] MEDS: 0.9 % Sodium Chloride Flush 3 ML SYRINGE IVFLUSH (16:11)
--- NOTE | 2025-04-19 16:25 | PC.NURSE ---
Patient unable to open mouth for swallow eval.
--- NOTE | 2025-04-19 19:02 | PC.NURSE ---
pt and family told nurse that she is still unable to open mouth and therefor cant take anything PO. Reached out to PA to see if we want to start mtn fluids. Instructed to wait for night doc. Also told PA that pt reports increasing mouth droop, and loss of vision in left eye. PA aware. Per previous nurse today there have been multiple attempts at swallow eval and pt has been unable to participate.
--- NOTE | 2025-04-19 19:26 | PC.NURSE ---
MD Fragoso summoned, now at bedside
[2025-04-19] MEDS: Valproic Acid (as Sodium Salt) 500 MG in Dextrose 5 % 50 ML 52.5 MG IV (19:44)
[2025-04-19] MEDS: Dextrose 5 % and Lactated Ring 1,000 ML 80 ML IVCONT (22:52)
[2025-04-20 03:55] VITALS: BP 130/76; PULSE 82; RESP 17; TEMP 36.4; O2SAT 97
[2025-04-20] MEDS: Butalb/Acetamin/Caff 50/325/40 TABLET 1 TAB PO ×2 (05:39→10:58)
[2025-04-20 06:57] VITALS: BP 124/65; PULSE 81; RESP 18; TEMP 37; O2SAT 98
[2025-04-20] MEDS: 0.9 % Sodium Chloride Flush 3 ML SYRINGE IVFLUSH (07:37)
--- NOTE | 2025-04-20 08:27 | MHC.CM.PN ---
CM met with Patient and her at bedside. Patient asked CM to speak with her /HCP/Wade. Patient lives in a house with her and 2 Sons, ages 3 and 19 years of age. 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 CM has initiated and will follow for dc planning. PCP is Dr. Pricila Cooper and will transport to home at dc.
[2025-04-20 11:01] VITALS: BP 140/87; PULSE 83; RESP 18; TEMP 36.8; O2SAT 98
[2025-04-20] MEDS: Dextrose 5 % and Lactated Ring 1,000 ML 80 ML IVCONT ×2 (11:05→23:41)
--- NOTE | 2025-04-20 11:24 | MHC.SL.SWA ---
Speech Pathologist Impression: Risk of Aspiration Due to: n/a Dysphasia Diet Status: Liquid Consistency and Strategies for Safe Swallow: Liquid Intake Recommendation: Thin Liquid Intake Strategies: Solid Food Consistency: Dietary Recommendations: Regular Additional Modifications to Solid Foods: Oral Medication Intake: Whole with Liquid Please contact the pharmacy regarding appropriate crushable or liquid drug formulations that are available whenever modified delivery is recommended. Compensatory Strategies and Precautions to be Taken for Safe Swallow: Supervision While Eating and Drinking for Safe Swallow: None Needed Foods to Avoid: Swallowing Recommended Treatments: Recommendation for Speech: NA:Typical Evaluation Comment: Patient has returned to base line s/p hemiplegic migraine, with all aspects of oral motor, swallow and speech WFL. Recommend START diet of REGULAR with THIN liquids, Pills whole with puree. Patient with history of GERD/Achalasia, should follow guidelines of remaining upright 30 minutes after meals. No further speech/swallow therapy needed will discharge order. MD/RD aware of recommendations by secure text, RN in person. Frequency/Duration: Date Range for Service Req: Timeline to reassess: Informatics Nurse Clinican/Clinical Fellow: No Supervisory Statement: I have reviewed and agree with the student/clinical fellow's documentation: N/A Speech Language Pathologist: Anabella Conroy M.A., CCC-BOARD TURNER
[2025-04-20 11:28] LABS: Anti Nuclear Antibody Screen NEGATIVE (NEGATIVE)
[2025-04-20] MEDS: Valproic Acid (as Sodium Salt) 500 MG in Dextrose 5 % 50 ML 55 MG IV (11:40)
--- NOTE | 2025-04-20 11:51 | HO.PM.IMPN ---
Subjective Subjective Date of Service: 04/20/25 Interval History: still with severe migraine and unable to move left side Physical Exam Exam: Exam: Alert oriented times 3, decrased strength on left side, appears in distress Vital Signs: Vital Signs: Last Vital Signs Temp 98.2 F 04/20/25 11:01 Pulse 83 04/20/25 11:01 Resp 18 04/20/25 11:01 BP 140/87 H 04/20/25 11:01 Pulse Ox 98 04/20/25 11:01 O2 Del Method Room Air 04/20/25 11:01 O2 Flow Rate 2 04/19/25 19:02 BMI result Body Mass Index 22.5 Objective Data Active Medications Acetaminophen (Acetaminophen 325 Mg Tablet) 650 mg PO Q6H PRN PRN Reason: Pain, Mild 1-3,fever,headache Acetaminophen/Butalbital/Caffeine (Butalb/Acetamin/Caff 50/325/40 Tablet) 1 tab PO Q4H PRN PRN Reason: Headache Last Admin: 04/20/25 10:58 Dose: 1 tab Documented By: SUMEET Calcium Carbonate (Calcium Carbonate 750 Mg Tab.Chew) 750 mg PO Q4H PRN PRN Reason: Heartburn Dextrose/Lactated Ringer's (D5lr) 1,000 mls @ 80 mls/hr IVCONT .[id number] [facility] Last Admin: 04/20/25 11:05 Dose: 80 mls/hr Documented By: SUMEET Valproic Acid 500 mg/ Dextrose 55 mls @ 55 mls/hr IV ONCE ONE Stop: 04/20/25 12:18 Last Admin: 04/20/25 11:40 Dose: 55 mls/hr Documented By: SUMEET Ketorolac Tromethamine (Ketorolac Tromethamine 15 Mg/Ml Vial) 15 mg IVPUSH Q6H PRN PRN Reason: Migraine Headache Last Admin: 04/20/25 08:40 Dose: 15 mg Documented By: SUMEET Magnesium Hydroxide (Milk Of Magnesia 30 Ml Oral.Susp) 30 ml PO DAILY PRN PRN Reason: Constipation Melatonin (Melatonin 3 Mg Tablet) 6 mg PO BEDTIME PRN PRN Reason: Insomnia Omeprazole (Omeprazole 20 Mg Capsule.Dr) 20 mg PO BID@0630,1630 [facility] Last Admin: 04/20/25 05:40 Dose: 20 mg Documented By: NOLVIA Sodium Chloride (0.9 % Sodium Chloride Flush 3 Ml Syringe) 3 ml IVFLUSH QSHIFT [facility] Last Admin: 04/20/25 07:37 Dose: 3 ml Documented By: SUMEET Labs 04/19/25 08:49 04/19/25 08:49 Labs: Laboratory Results - last 24 hr 04/19/25 13:14 ESR 6 DOMINIK Screen NEGATIVE Assessment and Plan (1) Hemiplegic migraine: Status: Acute Plan 49F PMH hemiplegic migraine presented with slurred speech, headache, left hemiparesis Acute recurrent left hemiplegic migraine Continue Fioricet, Toradol MRI negative Neuro following Trial of Depakote DVT prophylaxis-mechanical/early ambulation Full code reason for continued hospitalization:non resolution of migraine and hemiplegia Quality Stroke Does the patient have a stroke diagnosis?: No VTE Prior VTE?: No VTE Risk Level:: Medical - moderate - high VTE Device Contraindication: N/A - Device Ordered VTE Drug Contraindication: Treatment Not Indicated
[2025-04-20 15:06] VITALS: BP 114/77; PULSE 89; RESP 17; TEMP 36.8; O2SAT 95
[2025-04-20 19:44] VITALS: RESP 16
[2025-04-20 19:52] VITALS: BP 125/68; PULSE 89; RESP 20; TEMP 36.2; O2SAT 97
[2025-04-20] MEDS: diazePAM 10 MG/2 ML CARTRIDGE 5 MG IVPUSH (19:59)
--- NOTE | 2025-04-20 19:59 | PC.NURSE ---
Dilauded, Valum and Benadrl administered, pt RR is 16. at bedside, pulse O2 placed on pt finger.
[2025-04-21] VITALS: BP 100/63; PULSE 81; RESP 20; TEMP 36.7; O2SAT 97
[2025-04-21 04:00] VITALS: BP 105/73; PULSE 71; RESP 16; TEMP 36.1; O2SAT 97
[2025-04-21 07:39] VITALS: BP 125/69; PULSE 81; RESP 18; TEMP 36.2; O2SAT 96
[2025-04-21] MEDS: Butalb/Acetamin/Caff 50/325/40 TABLET 1 TAB PO ×2 (08:35→18:44)
--- NOTE | 2025-04-21 08:58 | PM.DS ---
DS: Providers Provider Date of Service: 04/22/25 Date of admission: 04/20/25 12:48 Date of discharge: 04/22/25 Primary care physician: Pricila Ellis PA-C DS: Diagnosis Discharge Diagnosis (1) Hemiplegic migraine: Status: Acute DS: Summary Hospital Course Hospital Course: from initial hpi: 49-year-old female with history of cervical spine fusion and hemiplegic migraines who presents to the emergency department with left-sided weakness. 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 She received IV Dilaudid, IV Benadryl, IV Valium but continued to have persistent symptoms. She reports having increasing frequency in her migraines., she has had 3 or 4 hemiplegic migraines in the past 3-1/2 years. Overall her migraines seem to improve after she had fusion of C4-C6 in 2019 but over the past few months her symptoms seem to be worsening. She follows with Neurology at [facility]. Her brain MRI 6 months ago was reportedly stable. Due to persistent symptoms she will be admitted for further management. hospital course: Patient was admitted for intractable migraine with acute recurrent left hemiplegic migraine. She was initially treated with hydromorphone, Benadryl, Valium, Toradol and did not improve. Neurology was consulted, recommended MRI and trial of Depakote. MRI was grossly negative but did show some FLAIR hyperintensities on the right consistent with migraine. Patient had mild improvement with Depakote but still required ongoing IV pain medication. Slowly headache started to improve and patient started to regain strength on left side. She is now feeling well enough go home and will follow up with Neurology/migraine specialist as outpatient. Time Attestation Discharge Coordination Time (in mins): 33 Quality: Safe Use of Opioids Does Pt have an Active Cancer Diagnosis on the Problem List?: No Quality: Stroke Does the patient have a stroke diagnosis?: No Physical Exam Exam: Exam: General: AO X 3, less distressed than previous Resp: CTA bilateral, no accessory muscles used CVS: S1,S2,RRR GI: soft, non tender, non distended Neuro: improving left sided strength Psych: appropriate affect, appropriate insight Vital Signs: Vital Signs: Last Vital Signs Temp 97.2 F 04/21/25 07:39 Pulse 81 04/21/25 07:39 Resp 18 04/21/25 07:39 BP 125/69 04/21/25 07:39 Pulse Ox 96 04/21/25 07:39 O2 Del Method Room Air 04/21/25 07:39 O2 Flow Rate 2 04/19/25 19:02 BMI result Body Mass Index 22.5 DS: Data Data Completed and Pending Labs on day of discharge: Laboratory Results - last 24 hr 04/19/25 13:14 DOMINIK Screen NEGATIVE DOMINIK Titer TNP DOMINIK Titer 2 TNP DOMINIK Titer 3 TNP DOMINIK Pattern TNP DOMINIK Pattern 2 TNP DOMINIK Pattern 3 TNP Discharge Plan Discharge Anticipated Discharge Date/Time: 04/21/25 08:57 Patient Disposition: Home, Self-Care Discharge Diagnosis: hemiplegic migraine Referrals: Pricila Cooper PA [Primary Care Provider, [facility]] - 1 Week Discharge Medications: Continued meloxicam 7.5 mg tablet 7.5 mg PO DAILY PRN (Reason: low back pain) Nurtec ODT 75 mg tablet,disintegrating 75 mg PO ONCE PRN (Reason: migraine) Ajovy Autoinjector 225 mg/1.5 mL auto-injector 225 mg SUBCUT Q28D Wegovy 2.4 mg/0.75 mL pen injector 2.4 mg subcut LANCASTER omeprazole 20 mg Tablet,Delayed Release (Dr/Ec) 20 mg PO BID Pulmicort Flexhaler 90 mcg/actuation Aerosol Powdr Breath Activated 1 inh INHALATION DAILY Discharge Orders: Discharge Order (Routine); Ordered 04/22/25 Ordered By: Chucho Stephens Diet: Advance to usual diet Activity on Discharge: As tolerated Stand Alone Forms: Patient Portal Discharge page Print Language: Tuvaluan Care Plan Goals: manage and prevent migraines Health Concerns: severe complicated migraines Plan of Treatment: continue home meds, follow up with neurology Assessment: see above
--- NOTE | 2025-04-21 11:04 | MHC.CM.PN ---
Addendum entered by Alondra Caraballo 04/21/25 13:28: Discharge cancelled for today per hospitalist. Original Note: Pt medically cleared for discharge home self-care, will arrange own transport home.
--- NOTE | 2025-04-21 12:22 | HO.PM.IMPN ---
Subjective Subjective Date of Service: 04/21/25 Interval History: attempted discharge today, but symptoms worsened, headache, difficulty ambulating Physical Exam Exam: Exam: General: AO X 3, less distressed than previous Resp: CTA bilateral, no accessory muscles used CVS: S1,S2,RRR GI: soft, non tender, non distended Neuro: improving left sided strength Psych: appropriate affect, appropriate insight Vital Signs: Vital Signs: Last Vital Signs Temp 97.2 F 04/21/25 07:39 Pulse 81 04/21/25 07:39 Resp 18 04/21/25 07:39 BP 125/69 04/21/25 07:39 Pulse Ox 96 04/21/25 07:39 O2 Del Method Room Air 04/21/25 07:39 O2 Flow Rate 2 04/19/25 19:02 BMI result Body Mass Index 22.5 Objective Data Active Medications Acetaminophen (Acetaminophen 325 Mg Tablet) 650 mg PO Q6H PRN PRN Reason: Pain, Mild 1-3,fever,headache Acetaminophen/Butalbital/Caffeine (Butalb/Acetamin/Caff 50/325/40 Tablet) 1 tab PO Q4H PRN PRN Reason: Headache Last Admin: 04/21/25 08:35 Dose: 1 tab Documented By: RITIKA Calcium Carbonate (Calcium Carbonate 750 Mg Tab.Chew) 750 mg PO Q4H PRN PRN Reason: Heartburn Dextrose/Lactated Ringer's (D5lr) 1,000 mls @ 80 mls/hr IVCONT .[id number] [facility] Last Admin: 04/21/25 11:01 Dose: Not Given Documented By: RITIKA Non-Admin Reason: No Access Ketorolac Tromethamine (Ketorolac Tromethamine 15 Mg/Ml Vial) 15 mg IVPUSH Q6H PRN PRN Reason: Migraine Headache Last Admin: 04/20/25 15:04 Dose: 15 mg Documented By: SUMEET Magnesium Hydroxide (Milk Of Magnesia 30 Ml Oral.Susp) 30 ml PO DAILY PRN PRN Reason: Constipation Melatonin (Melatonin 3 Mg Tablet) 6 mg PO BEDTIME PRN PRN Reason: Insomnia Omeprazole (Omeprazole 20 Mg Capsule.Dr) 20 mg PO BID@0630,1630 [facility] Last Admin: 04/21/25 06:25 Dose: 20 mg Documented By: SHINE Sodium Chloride (0.9 % Sodium Chloride Flush 3 Ml Syringe) 3 ml IVFLUSH QSHIFT [facility] Last Admin: 04/21/25 08:45 Dose: Not Given Documented By: RITIKA Non-Admin Reason: IV Running Labs 04/19/25 08:49 04/19/25 08:49 Labs: Laboratory Results - last 24 hr 04/19/25 13:14 DOMINIK Titer TNP DOMINIK Titer 2 TNP DOMINIK Titer 3 TNP DOMINIK Pattern TNP DOMINIK Pattern 2 TNP DOMINIK Pattern 3 TNP Assessment and Plan (1) Hemiplegic migraine: Status: Acute Plan 49F PMH hemiplegic migraine presented with slurred speech, headache, left hemiparesis Acute recurrent left hemiplegic migraine Continue Fioricet, Toradol MRI negative Neuro following s/p 2 doses Depakote DVT prophylaxis-mechanical/early ambulation Full code reason for continued hospitalization:non resolution of migraine and hemiplegia, unable to ambulate, still with severe headache Quality Stroke Does the patient have a stroke diagnosis?: No VTE Prior VTE?: No VTE Risk Level:: Medical - moderate - high VTE Device Contraindication: N/A - Device Ordered VTE Drug Contraindication: Treatment Not Indicated
[2025-04-21] MEDS: Valproic Acid (as Sodium Salt) 500 MG in Dextrose 5 % 50 ML 55 MG IV (13:46)
[2025-04-21 15:14] VITALS: BP 121/72; PULSE 86; RESP 20; TEMP 36.7; O2SAT 95
[2025-04-21 20:00] VITALS: BP 122/87; PULSE 81; RESP 20; TEMP 36.4; O2SAT 97
[2025-04-21] MEDS: Dextrose 5 % and Lactated Ring 1,000 ML 80 ML IVCONT (20:27)
[2025-04-22] VITALS: BP 104/59; PULSE 80; RESP 16; TEMP 36.1; O2SAT 97
[2025-04-22 04:00] VITALS: BP 102/58; PULSE 78; RESP 16; TEMP 36.3; O2SAT 95
[2025-04-22 07:03] VITALS: BP 117/72; PULSE 82; RESP 14; TEMP 36.4; O2SAT 97
[2025-04-22] MEDS: Butalb/Acetamin/Caff 50/325/40 TABLET 1 TAB PO (07:40)
[2025-04-22 11:41] VITALS: BP 121/64; PULSE 95; RESP 18; TEMP 36.6; O2SAT 99
--- NOTE | 2025-04-22 12:24 | MHC.CM.PN ---
PT IS MEDICALLY CLEARED FOR DISCHARGE HOME SELF-CARE, PT ARRANGED HAS ARRANGED HER OWN TRANSPORT HOME TODAY.
[2025-04-24 08:44] LABS: DNAds, Crithidia Antibody Negative (Negative)
== END 2025-04-22 14:55 | disposition home or self-care (01) | DRG 54 ==
LOC: HO.ED 12:22 → HO.EDOVER 12:38 → HO.IMC 19:20
PROVIDERS: Nurse Practitioner; Physician Assistant Medical; Admitting Provider Physician Assistant Medical; Emergency Provider Emergency Medicine; PCP Physician Assistant; Visit Provider Internal Medicine
DX: G43.409 Hemiplegic migraine, not intractable, without status migrainosus (principal); Z79.899 Other long term (current) drug therapy; Z98.1 Arthrodesis status
CPT/HCPCS: 36415; 70450; 70496; 70498; 70551; 80048; 80061; 82947; 84484; 85025; 85610; 85652; 85730; 86038; 86255; 92610; 93005; 99284; 99285; J0131; J1171; J1200; J1885; J3360; Q9967

== ENCOUNTER → 2025-04-19 08:18 | Outpatient (BNV) | payer BC, SELFPAY | PROVIDERS: Emergency Provider Emergency Medicine; Visit Provider Radiology Diagnostic Radiology | DX: R56.9 Unspecified convulsions (principal); R53.1 Weakness; R51.9 Headache, unspecified; H53.8 Other visual disturbances | CPT/HCPCS: 70450; 70496; 70498; 70551 ==

== ENCOUNTER → 2025-04-19 08:18 | Outpatient (BNV) | payer BC, SELFPAY | PROVIDERS: Admitting Provider Physician Assistant Medical; Emergency Provider Emergency Medicine; PCP Physician Assistant; Visit Provider Internal Medicine Cardiovascular Disease | DX: R00.0 Tachycardia, unspecified (principal) | CPT/HCPCS: 93010 ==

== ENCOUNTER → 2025-04-19 12:25 | Outpatient (BNV) | payer BC, SELFPAY | PROVIDERS: Admitting Provider Physician Assistant Medical; Emergency Provider Emergency Medicine; PCP Physician Assistant; Visit Provider Physician Assistant Medical | DX: G43.409 Hemiplegic migraine, not intractable, without status migrainosus (principal) | CPT/HCPCS: 99223; 99233 ==

== ENCOUNTER 2025-06-25 09:26 | Outpatient (AMB) | payer BC, SELFPAY ==
--- NOTE | 2025-06-25 09:28 | MHC.OFFVIS ---
Vital Signs 06/25/25 09:29 Height 5 ft 0.5 in Weight 107 lb BMI 20.6 BP 152/79 H Blood Pressure Location Lt brachial Position Sitting Respiration 16 Pulse 81 Pulse Source Pulse Oximeter Pulse Oximetry (%) 100 Oxygen Delivery Method Room Air Intake Visit Reasons: Disorder of Sacrum Director Of Logistics Required: No Allergies amitriptyline Allergy (Unknown, Verified 06/25/25 09:31) Unknown Medication List - Last Reconciled 06/25/25 by Cecy Mccray LPN budesonide 90 mcg/actuation (Pulmicort Flexhaler) 1 inh inhalation DAILY fremanezumab-vfrm (Ajovy) 225 mg subcut Q28D meloxicam 7.5 mg PO DAILY PRN omeprazole 20 mg PO BID rimegepant (Nurtec ODT) 75 mg PO ONCE PRN semaglutide (weight loss) (Wegovy) 2.4 mg subcut LANCASTER HPI HPI Disorder of Sacrum: Details: History of Present Illness The patient is a 49-year-old individual presenting for evaluation for a repeat left L5-S1 TF epidural injection and a right sacroiliac (SI) joint injection. The patient has a history of a left-sided L5-S1 herniated disc, which is thought to have developed in 2023 following a that ended in a miscarriage. The patient received a left L5-S1 TFESI on October 26, 2024, which significantly reduced the left leg pain, with relief lasting until March. The patient is now overdue for this injection. The patient's pain continues with an intensity of 5-8 out of 10, characterized by burning that is worse now than in 2023, and is exacerbated by weather changes, bending, and sitting. In addition to the disc herniation, the patient has a history of SI joint instability. The patient underwent a left SI joint fusion in 2017, which provided tremendous relief. The patient currently experiences pain in the right, unfused SI joint and received a therapeutic injection on December 21, 2024, which provided approximately 3 months of relief, wearing off around March. Past medical history is also notable for hemiplegic migraines and cervical degenerative disc disease, which required a neck fusion in 2019. 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 The pain significantly interferes with the patient's caretaking capacity as a mother. Pain Description - Onset: The L5-S1 associated pain began in 2023 after a and subsequent miscarriage. - Location: The patient reports more back pain than leg pain currently. - Radiation: Radicular pain with burning and numbness travels down the left leg. - Intensity: Pain level ranges from 5 to 8 out of 10. - Exacerbating Factors: Pain is worsened by weather changes, bending over, prolonged sitting, standing on hard floors, and lying flat at night. - Relieving Factors: Previous left L5-S1 epidural steroid injection and a right sacroiliac joint injection provided significant, temporary relief for over 3 months each. - Associated Symptoms: The patient uses a brace for support. - Interference with Function: Pain significantly interferes with caretaking duties and disrupts sleep, causing the patient to be constantly turning at night. Physical Exam - Musculoskeletal: On examination of the lumbar spine, there is pain in the axial lower back on forward flexion and extension is severely limited. - Musculoskeletal: Per report, tenderness to palpation over the right sacroiliac joint. - Musculoskeletal: The NIGEL test reproduces pressure in the right sacroiliac joint, and the SI joint compression test reproduces pain. - Neurologic: Straight leg raise is positive on the left side, reproducing a sensation of pressure. Results - Imaging: An MRI of the lumbar spine shows a herniated disc at L5-S1. - Imaging: The MRI also reveals vertebral endplate degenerative changes at L5-S1, with irregularity and edema noted, secondary to loss of disc cushioning. - Imaging: A past neck CT was performed for hemiplegic migraines. Pain Management - Analgesia: Current pain is 5-8 out of 10. - Analgesia: Previous interventions included a left L5-S1 epidural injection and a right sacroiliac joint injection, both of which provided over three months of relief before wearing off. - Analgesia: The patient uses a brace for support. - Activities of Daily Living: Pain interferes significantly with the patient's caretaking capacity as a mother. - Activities of Daily Living: Sleep is poor, as the patient reports constantly turning all night due to back pain. - Activities of Daily Living: Bending and prolonged sitting or standing exacerbate the pain. [facility] Medical History (Updated 06/25/25 @ 10:35 by Surinder Hough MD) Back pain Disorder of sacrum Hemiplegic migraine GERD (gastroesophageal reflux disease) Achalasia Migraine Social History Household Members: Spouse and Children Housing: House Alcohol intake: current Alcohol intake frequency: holidays/special occasions only Patient Tobacco Use Status: Never used Tobacco Advance Directives Date on File: 04/19/25 service: No Physical Exam Vital Signs: Last Vital Signs Pulse 81 06/25/25 09:29 Resp 16 06/25/25 09:29 BP 152/79 H 06/25/25 09:29 Pulse Ox 100 06/25/25 09:29 Oxygen Delivery Method Room Air 06/25/25 09:29 BMI result Body Mass Index 20.6 Assessment & Plan Assessment & Plan (1) Lumbar radicular pain: Code(s): M54.16 - Radiculopathy, lumbar region Category: Medical (2) Vertebrogenic low back pain: Code(s): M54.51 - Vertebrogenic low back pain Category: Medical (3) Other intervertebral disc degeneration, lumbar region with discogenic back pain and lower extremity pain: Code(s): M51.362 - Other intervertebral disc degeneration, lumbar region with discogenic back pain and lower extremity pain Category: Medical (4) Sacroiliac dysfunction: Comment: S/p L SIJ fusion; L sided persistent dysfunction Code(s): M53.3 - Sacrococcygeal disorders, not elsewhere classified Category: Medical Plan Plan Patient was informed and verbally consented to the use of an ambient scribe for clinic note documentation during this visit. 1. Left L5-S1 Disc Herniation With Radiculopathy - The patient's left-sided radicular pain is attributed to the L5-S1 disc herniation. - The axial back pain, particularly with flexion and when lying flat, is attributed to the combination of the herniated disc and associated vertebral endplate degenerative changes. - Plan to proceed with a repeat left L5-S1 transforaminal epidural steroid injection, as this has provided good relief previously. - If axial back pain remains a significant issue after the injection, the patient may be a candidate for basivertebral nerve ablation in the future. - A brochure on this procedure was provided for the patient's consideration. 2. Right Sacroiliac Joint Dysfunction - The patient has tenderness and reproduction of pain over the right sacroiliac joint on physical exam, consistent with SI joint dysfunction on the unfused side. - Plan to proceed with a repeat right therapeutic sacroiliac joint injection, given the history of more than 3 months of relief from the previous injection. 3. Procedure Plan - Insurance authorization will be obtained for both the left L5-S1 transforaminal epidural steroid injection and the right sacroiliac joint injection. - The patient will be contacted to schedule the procedures once authorization is received. Discussion Notes I discussed with the patient my assessment of the causes of the pain. I explained that the burning and numbness down the left leg are from the L5-S1 disc herniation, while the deep aching back pain, especially when lying down or bending, is likely from the associated vertebral endplate inflammation and degeneration. I showed the patient the MRI findings demonstrating these endplate changes. We agreed to proceed with the two injections that have worked well in the past: a left L5-S1 transforaminal epidural steroid injection and a right sacroiliac joint injection. I also introduced the possibility of a basivertebral nerve ablation as a future option specifically for the component of axial back pain if it continues to be a recurring problem after the injections. I provided a brochure for the patient to review. I informed the patient that our office will seek insurance authorization and then call to schedule the procedures. Patient Instructions - We will move forward with scheduling two injections that have helped your pain in the past: one for your low back and left leg pain, and another for your right hip area (SI joint) pain. - Our office will first get approval from your insurance company, and then we will call you to schedule a date and time for these procedures. - Please review the brochure I gave you about a procedure called basivertebral ablation. - This procedure may be an option for you in the future if your deep back pain continues to be a problem. - Continue to be mindful of how you bend, using the exercises you were previously taught. Coding Level of Care Code New Pt Level 4 (03698) Diagnoses Lumbar radicular pain M54.16 Vertebrogenic low back pain M54.51 Other intervertebral disc degeneration, lumbar region with discogenic back pain and lower extremity pain M51.362 Sacroiliac dysfunction M53.3
[2025-06-25 09:29] VITALS: BP 152/79; PULSE 81; RESP 16; O2SAT 100; BMI 20.6
--- OUTSIDE RECORDS SUMMARY | 2025-06-25 11:09 | XMS_ITS | Encounter Summary ---
Author Organization [facility] Address [address] [place] [address] Care Team Providers Care Talent Development Analyst Name Role Phone Aramis Morales MD Primary Care Provider [phone] Encounter Details Date Type Department Care Team (Late st Contact Info) Description 10/25/2017 Scanned Document [facility] Neurosurgery [place] [address] [facility] [place] [address] Garrison Varghese MD [address] [facility] [address] [place] [address] Social History Tobacco Use Types Packs/Day Years [...] on filedocumented in this encounter Care Teams Talent Development Analyst Relationship Specialty Start Date End Date Aramis Morales MD [address] [place] [address] PCP - General Internal Medicine 03/16/17 documented as of this encounter
--- OUTSIDE RECORDS SUMMARY | 2025-06-25 11:09 | XMS_ITS | Encounter Summary ---
Author Organization [facility] Address [address] [place] [address] Care Team Providers Care Hand Tacker Name Role Phone Aramis Morales MD Primary Care Provider [phone] Encounter Details Date Type Department Care Team (Late st Contact Info) Description 10/25/[address] [facility] Neurosurgery [place] [address] [facility] [address] [place] [address] Garrison Varghese MD [address] [facility] [address] [place] [address] Social History Tobacco Use Types Packs/Day Years [...] on filedocumented in this encounter Care Teams Hand Tacker Relationship Specialty Start Date End Date Aramis Morales MD [address] [place] [address] PCP - General Internal Medicine 03/16/17 documented as of this encounter
--- OUTSIDE RECORDS SUMMARY | 2025-06-25 11:09 | XMS_ITS | Encounter Summary ---
Author Organization [facility] Address [address] [place] [address] Care Team Providers Care Search Developer Name Role Phone Aramis Morales MD Primary Care Provider [phone] Encounter Details Date Type Department Care Team (Latest Contact Info) Description 09/10/2017 Prep for Surgery [facility] Neurosurgery [address] [place] [address] Pina Orellana PA [address] [address] Sacroiliac dysfunction (Primary Dx) Social History Tobacco [...] classified documented in this encounter Care Teams Search Developer Relationship Specialty Start Date End Date Aramis Morales MD [address] [place] [address] PCP - General Internal Medicine 03/16/17 documented as of this encounter
--- OUTSIDE RECORDS SUMMARY | 2025-06-25 11:09 | XMS_ITS | Clinical Summary ---
Author Organization [facility] Address [address] [place] [address] Care Team Providers Care Electroplater Apprentice Name Role Phone Aramis Morales MD Primary Care Provider [phone] Allergies Active Allergy Reactions Criticality Noted Date [...] Assessment & Plan: Aletha reports LEEP in [address] Pizano at [facility] for HPV ; she was not clear that she had abnormal pap as well. She reports normal paps since at frequent intervals - last pap with [facility] in 2016 per her report and recommendation for 3 year pap. Will get records to review dx/findings and confirm plan, including pap/HPV screen in 2019. 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 Encounters Date Type Department Care Team Description 06/12/2025 10:25 AM EST Ancillary Procedure [facility] [address] [place] [address] Provider, File Room from Last 3 Months Immunizations Immunization Administration Dates Next Due Influenza [...] Colonoscopy 2022 Influenza Vaccine 02/23/2025 COVID-19 Vaccine (2024-2 6 season) 2025 12/19/2021 HIV Screening Completed 02/02/2020 Pneumococcal Vaccine: Pediat zion (0-5 Years) and At-Risk Patients (6 to 49 Years) Aged Out No longer eligible b ased on patient's age to complete this topic Medical Devices Implanted Type Area Grants Specialist Device Identifier Shelf Expiration Date Model / Serial / Lot [id number] Cage Cervical Hijak Lordotic [id number] - [id number] Implanted:Qty: 2 on 08/23/2019 by Garrison Varghese MD at [facility] Plate [employer] [id number] / / [id number] Plate Spine Cervical Anterior [id number] 2 Lvl 14mm Prebnt - [id number] Implanted:Qty: 1 on 08/23/2019 by Garrison Varghese MD at [facility] Plate DEPUY JOINT RECONSTRUCTION - A [id number] / / [id number] Screw Bone Spine Ilium Pdcl Cd Hzn Lgc 14mm Ti Distraction - Sna Implanted:Qty: 2 on 08/23/2019 by Garrison Varghese MD at [facility] Spine [employer] 11/23/2021 [id number] / NA / [id number] Screw Bone Spine Cervical Anterior [place] 16mm Ti 4mm Self - [id number] Implanted:Qty: 4 on 08/23/2019 by Garrison Varghese MD at [facility] Spine DEPUY JOINT RECONSTRUCTION - A [id number] / / [id number] Screw Bone Spine [place] 20- D 14mm Ti 4mm Self Drill Va - [id number] Implanted:Qty: 2 on 08/23/2019 by Garrison Varghese MD at [facility] Spine DEPUY JOINT RECONSTRUCTION - A [id number] / / Graft Bone Accell Dispersed Dbm 2.5ml Putty Void Filler - [id number] Implanted:Qty: 1 on 08/23/2019 by Garrison Varghese MD at [facility] Tissue [employer] 07/22/2020 / [id number] / [id number] Ifuse-3d Implanted:Qty: 1 on 11/17/2017 by Garrison Varghese MD at [facility] Other 12/28/2022 7050M-90 / [id number] / [id number] Description:ifuse implnant s ystem 7.5gpro41ht implant Ifuse-3d 7.1tvq30uf Implant Implanted:Qty: 2 on 11/17/2017 by Garrison Varghese MD at [facility] Other 04/19/2022 7050M-90 / / [id number] Description:REF 7050M-90 Procedures Procedure Name Priority Date/Time Associated Diagnosis Comments MR SPINE ARCHIVE FOR REFERENCE ONLY Routine 06/12/2025 10:23 AM EST from Last 3 Months Results * MR Spine Archive for Reference Only (06/12/2025 10:23 AM EST) Narrative DAVID - 06/12/2025 10:23 AM EST This study has been auto finalized and does not contain a result. us File Room Provider IMG DIGITIZE FILMS Final Resu lt DAVID [phone] from Last 3 Months Insurance [facility] [place] [id number] UMR Advance Directives * Full Code (Latest Code Status on File) Date Activated Date Inactivated Comments 08/23/2019 6:34 PM * Full Code Date Activated Date Inactivated Comments 08/23/2019 10:40 AM 08/23/2019 6:34 PM * Full Code Date Activated Date Inactivated Comments 11/17/2017 2:47 PM 08/23/2019 9:02 AM * Full Code Date Activated Date Inactivated Comments 11/17/2017 7:23 AM 11/17/2017 2:47 PM Care Teams Electroplater Apprentice Relationship Specialty Start Date End Date Aramis Morales MD [address] [place] [address] PCP - General Internal Medicine 03/16/17
--- OUTSIDE RECORDS SUMMARY | 2025-06-25 11:09 | XMS_ITS | Encounter Summary ---
Author Organization [facility] Address [address] [place] [address] Care Team Providers Care Residential Advisor Name Role Phone Aramis Morales MD Primary Care Provider Encounter Details Date Type Department Care Team (Late st Contact Info) Description 07/13/2019 Scanned Document [facility] Neurosurgery [place] 35 [facility] [address] [place] [address] Garrison Varghese MD 35 [facility] 5 [place] [address] Social History Tobacco Use Types Packs/Day Years [...] on filedocumented in this encounter Care Teams Residential Advisor Relationship Specialty Start Date End Date Aramis Morales MD 4 [place] [address] PCP - General Internal Medicine 03/16/17 documented as of this encounter
--- OUTSIDE RECORDS SUMMARY | 2025-06-25 11:09 | XMS_ITS | Encounter Summary ---
Author Organization [facility] Address [address] [place] [address] Care Team Providers Care Private Branch Exchange Service Adviser Name Role Phone Aramis Morales MD Primary Care Provider [phone] Encounter Details Date Type Department Care Team (Late st Contact Info) Description 11/09/[address] [facility] Neurosurgery [place] 35 [facility] [address] [place] [address] Garrison Varghese MD 35 [facility] 5 [place] [address] Social History Tobacco Use Types Packs/Day Years [...] on filedocumented in this encounter Care Teams Private Branch Exchange Service Adviser Relationship Specialty Start Date End Date Aramis Morales MD [address] [place] [address] PCP - General Internal Medicine 03/16/17 documented as of this encounter
--- OUTSIDE RECORDS SUMMARY | 2025-06-25 11:09 | XMS_ITS ---
[facility] Name [facility] Organization Unknown Encounters Encounter Type Encounter Reason Primary Diagnosis Location Date Ambulatory [facility] 06/12/2025 Care Team Organization Name Specialty Phone Email Start Date End Da te [facility] [place] Primary Care 06/12/2025 [facility] CASSANDRA PORTER Primary Care 06/12/2025
--- OUTSIDE RECORDS SUMMARY | 2025-06-25 11:09 | XMS_ITS | Encounter Summary ---
Author Organization [facility] Address [address] [place] [address] Care Team Providers Care Guillotine Operator Name Role Phone Aramis Morales MD Primary Care Provider [phone] Encounter Details Date Type Department Care Team (Late st Contact Info) Description 10/12/2017 Scanned Document [facility] Neurosurgery [place] 35 [facility] [address] [place] [address] Garrison Varghese MD 35 [facility] 5 [place] [address] Social History Tobacco Use Types Packs/Day Years [...] on filedocumented in this encounter Care Teams Guillotine Operator Relationship Specialty Start Date End Date Aramis Morales MD [address] [place] [address] PCP - General Internal Medicine 03/16/17 documented as of this encounter
--- OUTSIDE RECORDS SUMMARY | 2025-06-25 11:09 | XMS_ITS | Encounter Summary ---
Author Organization [facility] Address [address] [place] [address] Care Team Providers Care Glass Etcher Helper Name Role Phone Aramis Morales MD Primary Care Provider [phone] Encounter Details Date Type Department Care Team (Late st Contact Info) Description 07/17/2019 Scanned Document [facility] Neurosurgery [address] [phone] Social History Tobacco Use Types Packs/Day Years [...] on filedocumented in this encounter Care Teams Glass Etcher Helper Relationship Specialty Start Date End Date Aramis Morales MD 4 [place] [address] PCP - General Internal Medicine 03/16/17 documented as of this encounter
--- OUTSIDE RECORDS SUMMARY | 2025-06-25 11:10 | XMS_ITS | Encounter Summary ---
Author Organization [facility] Address [address] [place] [address] Care Team Providers Care Sleeve Turner Name Role Phone Aramis Morales MD Primary Care Provider [phone] Encounter Details Date Type Department Care Team (Late st Contact Info) Description 11/18/2017 Scanned Document [facility] Neurosurgery [place] 35 [facility] 5 [place] [phone] Garrison Varghese MD 35 [facility] 5 [place] [address] Social History Tobacco Use Types Packs/Day Years [...] on filedocumented in this encounter Care Teams Sleeve Turner Relationship Specialty Start Date End Date Aramis Morales MD [address] [place] [address] PCP - General Internal Medicine 03/16/17 documented as of this encounter
--- OUTSIDE RECORDS SUMMARY | 2025-06-25 11:10 | XMS_ITS | Encounter Summary ---
Author Organization [facility] Address [address] [place] [address] Care Team Providers Care Fire Suppression Captain Name Role Phone Aramis Morales MD Primary Care Provider [phone] Encounter Details Date Type Department Care Team (Late st Contact Info) Description 08/15/2019 Scanned Document [facility] Neurosurgery [address] [place] [phone] Katherine Robles MA [address] [place] [address] Social History Tobacco Use Types Packs/Day Years [...] on filedocumented in this encounter Care Teams Fire Suppression Captain Relationship Specialty Start Date End Date Aramis Morales MD [address] [place], [place] [phone] PCP - General Internal Medicine 03/16/17 documented as of this encounter
--- OUTSIDE RECORDS SUMMARY | 2025-06-25 11:10 | XMS_ITS | Encounter Summary ---
Author Organization [facility] Address [address] [place] [address] Care Team Providers Care Battery Wrecker Operator Name Role Phone Aramis Morales MD Primary Care Provider [phone] Encounter Details Date Type Department Care Team (Late st Contact Info) Description 01/18/[address] [facility] Neurosurgery [place] 35 [facility] [address] 5 [place] [phone] Garrison Varghese MD 35 [facility] 5 [place] [address] Social History Tobacco Use Types Packs/Day Years [...] on filedocumented in this encounter Care Teams Battery Wrecker Operator Relationship Specialty Start Date End Date Aramis Morales MD [address] [place] [address] PCP - General Internal Medicine 03/16/17 documented as of this encounter
--- OUTSIDE RECORDS SUMMARY | 2025-06-25 11:10 | XMS_ITS | Encounter Summary ---
Author Organization [facility] Address [address] [place] [address] Care Team Providers Care Laborer Powerhouse Name Role Phone Aramis Morales MD Primary Care Provider [phone] Encounter Details Date Type Department Care Team (Late st Contact Info) Description 04/15/2017 Scanned Document [facility] Neurosurgery [place] 35 [facility] [address] [place] [address] Garrison Varghese MD 35 [facility] 5 [place] [address] Social History Tobacco Use Types Packs/Day Years [...] on filedocumented in this encounter Care Teams Laborer Powerhouse Relationship Specialty Start Date End Date Aramis Morales MD [address] [place] [address] PCP - General Internal Medicine 03/16/17 documented as of this encounter
--- OUTSIDE RECORDS SUMMARY | 2025-06-25 11:10 | XMS_ITS | Encounter Summary ---
Author Organization [facility] Address [address] [place] [address] Care Team Providers Care Inset Cutter Name Role Phone Aramis Morales MD Primary Care Provider [phone] Encounter Details Date Type Department Care Team (Late st Contact Info) Description 08/09/2017 Scanned Document [facility] Neurosurgery [place] 35 [facility] [address] [place] [address] Garrison Varghese MD 35 [facility] 5 [place] [address] Social History Tobacco Use Types Packs/Day Years [...] on filedocumented in this encounter Care Teams Inset Cutter Relationship Specialty Start Date End Date Aramis Morales MD 4 [place] [address] PCP - General Internal Medicine 03/16/17 documented as of this encounter
--- OUTSIDE RECORDS SUMMARY | 2025-06-25 11:10 | XMS_ITS | Encounter Summary ---
Author Organization [facility] Address [address] [place] [address] Care Team Providers Care Hammer Shop Supervisor Name Role Phone Aramis Morales MD Primary Care Provider [phone] Encounter Details Date Type Department Care Team (Late st Contact Info) Description 08/09/2017 Scanned Document [facility] Neurosurgery [place] 35 [facility] [address] [place] [address] Garrison Varghese MD 35 [facility] 5 [place] [address] Social History Tobacco Use Types Packs/Day Years [...] on filedocumented in this encounter Care Teams Hammer Shop Supervisor Relationship Specialty Start Date End Date Aramis Morales MD 4 [place] [address] PCP - General Internal Medicine 03/16/17 documented as of this encounter
--- OUTSIDE RECORDS SUMMARY | 2025-06-25 11:10 | XMS_ITS | Encounter Summary ---
Author Organization [facility] Address [address] [place] [address] Care Team Providers Care Mc Kay Machine Operator Name Role Phone Aramis Morales MD Primary Care Provider [phone] Encounter Details Date Type Department Care Team (Late st Contact Info) Description 08/15/2019 Scanned Document [facility] Neurosurgery [address] [place] [phone] Katherine Robles MA [address] [place] [address] Social History Tobacco Use Types Packs/Day Years [...] on filedocumented in this encounter Care Teams Mc Kay Machine Operator Relationship Specialty Start Date End Date Aramis Morales MD [address] [place], [place] [phone] PCP - General Internal Medicine 03/16/17 documented as of this encounter
--- OUTSIDE RECORDS SUMMARY | 2025-06-25 11:10 | XMS_ITS | Encounter Summary ---
Author Organization [facility] Address [address] [place] [address] Care Team Providers Care Halal Butcher Name Role Phone Aramis Morales MD Primary Care Provider [phone] Encounter Details Date Type Department Care Team (Latest Contact Info) Description 04/12/2017 Prep for Surgery [facility] Neurosurgery [address] 5 [place] [phone] Pina Orellana PA [address] [address] Sacroiliac joint dysfunction of left side (Primary [...] Primary documented in this encounter Care Teams Halal Butcher Relationship Specialty Start Date End Date Aramis Morales MD [address] [place] [address] PCP - General Internal Medicine 03/16/17 documented as of this encounter
--- OUTSIDE RECORDS SUMMARY | 2025-06-25 11:10 | XMS_ITS | Encounter Summary ---
Author Organization [facility] Address [address] [place] [address] Care Team Providers Care Mold Car Pusher Name Role Phone Aramis Morales MD Primary Care Provider [phone] Encounter Details Date Type Department Care Team (Late st Contact Info) Description 12/22/2017 Scanned Document [facility] Neurosurgery [address] [address] [place], [place] [address] [address] Social History Tobacco Use Types Packs/Day Years [...] on filedocumented in this encounter Care Teams Mold Car Pusher Relationship Specialty Start Date End Date Aramis Morales MD [address] [place] [address] PCP - General Internal Medicine 03/16/17 documented as of this encounter
--- OUTSIDE RECORDS SUMMARY | 2025-06-25 11:10 | XMS_ITS | Encounter Summary ---
Author Organization [facility] Address [address] [place] [address] Care Team Providers Care Geophysical Laboratory Supervisor Name Role Phone Aramis Morales MD Primary Care Provider [phone] Encounter Details Date Type Department Care Team (Late st Contact Info) Description 10/25/2017 Scanned Document [facility] Neurosurgery [place] 35 [facility] [address] [place] [address] Garrison Varghese MD 35 [facility] 5 [place] [address] Social History Tobacco Use Types Packs/Day Years [...] on filedocumented in this encounter Care Teams Geophysical Laboratory Supervisor Relationship Specialty Start Date End Date Aramis Morales MD 4 [place] [address] PCP - General Internal Medicine 03/16/17 documented as of this encounter
--- OUTSIDE RECORDS SUMMARY | 2025-06-25 11:10 | XMS_ITS | Encounter Summary ---
Author Organization [facility] Address [address] [place] [address] Care Team Providers Care Audiovisual Aids Technician Name Role Phone Aramis Morales MD Primary Care Provider [phone] Encounter Details Date Type Department Care Team (Late st Contact Info) Description 08/11/2019 Scanned Document [facility] Neurosurgery [address] [phone] Social History Tobacco Use Types Packs/Day Years [...] on filedocumented in this encounter Care Teams Audiovisual Aids Technician Relationship Specialty Start Date End Date Aramis Morales MD 4 [place] [address] PCP - General Internal Medicine 03/16/17 documented as of this encounter
--- OUTSIDE RECORDS SUMMARY | 2025-06-25 11:10 | XMS_ITS | Encounter Summary ---
Author Organization [facility] Address [address] [place] [address] Care Team Providers Care Operations Specialists Name Role Phone Aramis Morales MD Primary Care Provider [phone] Encounter Details Date Type Department Care Team (Late st Contact Info) Description 01/18/2018 Scanned Document [facility] Neurosurgery [place] 35 [facility] 5 [place] [phone] Garrison Varghese MD 35 [facility] 5 [place] [address] Social History Tobacco Use Types Packs/Day Years [...] on filedocumented in this encounter Care Teams Operations Specialists Relationship Specialty Start Date End Date Aramis Morales MD [address] [place] [address] PCP - General Internal Medicine 03/16/17 documented as of this encounter
--- OUTSIDE RECORDS SUMMARY | 2025-06-25 11:10 | XMS_ITS | Encounter Summary ---
Author Organization [facility] Address [address] [place] [address] Care Team Providers Care Nurse Aide Name Role Phone Aramis Morales MD Primary Care Provider [phone] Encounter Details Date Type Department Care Team (Late st Contact Info) Description 04/15/2017 Scanned Document [facility] Neurosurgery [place] 35 [facility] [address] [place] [address] Garrison Varghese MD 35 [facility] 5 [place] [address] Social History Tobacco Use Types Packs/Day Years [...] on filedocumented in this encounter Care Teams Nurse Aide Relationship Specialty Start Date End Date Aramis Morales MD 4 [place] [address] PCP - General Internal Medicine 03/16/17 documented as of this encounter
--- OUTSIDE RECORDS SUMMARY | 2025-06-25 11:10 | XMS_ITS | Encounter Summary ---
Author Organization [facility] Address [address] [place] [address] Care Team Providers Care Manager Clinic Name Role Phone Aramis Morales MD Primary Care Provider Encounter Details Date Type Department Care Team (Late st Contact Info) Description 08/14/2019 Scanned Document [facility] Neurosurgery [address] [phone] Social History Tobacco Use Types Packs/Day Years [...] filedocumented in this encounter Care Teams Manager Clinic Relationship Specialty Start Date End Date Aramis Morales MD 4 [place] [address] PCP - General Internal Medicine 03/16/17 documented as of this encounter
--- OUTSIDE RECORDS SUMMARY | 2025-06-25 11:10 | XMS_ITS | Encounter Summary ---
Author Organization [facility] Address [address] [place] [address] Care Team Providers Care Streetsweeper Operator Name Role Phone Aramis Morales MD Primary Care Provider [phone] Encounter Details Date Type Department Care Team (Late st Contact Info) Description 11/24/2017 Scanned Document [facility] Neurosurgery [address] [address] [place], [place] [address] [address] Social History Tobacco Use Types Packs/Day Years [...] on filedocumented in this encounter Care Teams Streetsweeper Operator Relationship Specialty Start Date End Date Aramis Morales MD [address] [place] [address] PCP - General Internal Medicine 03/16/17 documented as of this encounter
--- OUTSIDE RECORDS SUMMARY | 2025-06-25 11:10 | XMS_ITS | Encounter Summary ---
Author Organization [facility] Address [address] [place] [address] Care Team Providers Care Piccolo Mechanic Name Role Phone Aramis Morales MD Primary Care Provider [phone] Encounter Details Date Type Department Care Team (Late st Contact Info) Description 02/01/2020 Scanned Document [facility] Neurosurgery [address] [phone] Social History Tobacco Use Types [...] on filedocumented in this encounter Care Teams Piccolo Mechanic Relationship Specialty Start Date End Date Aramis Morales MD [address] [place] [address] PCP - General Internal Medicine 03/16/17 documented as of this encounter
--- OUTSIDE RECORDS SUMMARY | 2025-06-25 11:10 | XMS_ITS | Encounter Summary ---
Author Organization [facility] Address [address] [place] [address] Care Team Providers Care Flask Maker Name Role Phone Aramis Morales MD Primary Care Provider [phone] Encounter Details Date Type Department Care Team (Late st Contact Info) Description 04/15/2017 Scanned Document [facility] Neurosurgery [place] 35 [facility] [address] [place] [address] Garrison Varghese MD 35 [facility] 5 [place] [address] Social History Tobacco Use Types Packs/Day Years [...] on filedocumented in this encounter Care Teams Flask Maker Relationship Specialty Start Date End Date Aramis Morales MD 4 [place] [address] PCP - General Internal Medicine 03/16/17 documented as of this encounter
--- OUTSIDE RECORDS SUMMARY | 2025-06-25 11:10 | XMS_ITS | Encounter Summary ---
Author Organization [facility] Address [address] [place] [address] Care Team Providers Care Nurse Healthcare Manager Name Role Phone Aramis Morales MD Primary Care Provider [phone] Encounter Details Date Type Department Care Team (Late st Contact Info) Description 01/17/2018 Scanned Document [facility] Neurosurgery [place] [phone] Pina Orellana PA [address] [place] [address] Social History Tobacco Use Types Packs/Day Years [...] filedocumented in this encounter Care Teams Nurse Healthcare Manager Relationship Specialty Start Date End Date Aramis Morales MD [address] [place] [address] PCP - General Internal Medicine 03/16/17 documented as of this encounter
--- OUTSIDE RECORDS SUMMARY | 2025-06-25 11:10 | XMS_ITS | Encounter Summary ---
Author Organization [facility] Address [address] [place] [address] Care Team Providers Care Manager Express Name Role Phone Aramis Morales MD Primary Care Provider [phone] Encounter Details Date Type Department Care Team (Late st Contact Info) Description 08/14/2019 Scanned Document [facility] Neurosurgery [address] [phone] Social History Tobacco Use Types Packs/Day Years [...] filedocumented in this encounter Care Teams Manager Express Relationship Specialty Start Date End Date Aramis Morales MD 4 [place] [address] PCP - General Internal Medicine 03/16/17 documented as of this encounter
--- OUTSIDE RECORDS SUMMARY | 2025-06-25 11:10 | XMS_ITS | Clinical Summary ---
Author Organization [facility] it Address [address] [place] [address] Care Team Providers Care Buffing And Polishing Wheel Repairer Name Role Phone Aramis Morales MD Primary [...] Anterior approach for cervical disc 2020 in [place] ESOPHAGOGASTRODUODENOSCOPY PROCEDURE: MO EGD TRANSORAL BIOPSY SINGLE/MULTIPLE; COMMENT: Performed by [...] Last Done Comments Breast Cancer Screening 1977 Colorectal Cancer Screening: Colonoscopy 1977 Hepatitis B Vaccines (1 of 3 - 19+ 3-dose series) 1996 Pneumococcal Vaccine: Pediat rics (0 to 5 Years) and At-Risk Patients (6 to 49 Years) (1 of 2 - PCV) 1996 Cervical Cancer Screening: P ap Smear 1998 DTaP,Tdap,and Td Vaccines (2 - Td or Tdap) 02/19/2020 02/18/2010 HIV Screening 06/24/2022 Hepatitis C Screening 06/24/2022 Social Influencers of Health Screening 06/24/2022 Depression Screening 07/26/2024 COVID-19 Vaccine (1 - 2024-2 6 season) 2025 Influenza Vaccine (#1) 2025 RSV Immunization Adult Patie nts (1 - 1-dose 75+ series) 2052 HIB Vaccines Aged Out No longer eligi [...] Documents on File Type Date Recorded 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
--- OUTSIDE RECORDS SUMMARY | 2025-06-25 11:10 | XMS_ITS | Encounter Summary ---
Author Organization [facility] Address [address] [place] [address] Care Team Providers Care Financial Investment Manager Name Role Phone Aramis Morales MD Primary Care Provider [phone] Encounter Details Date Type Department Care Team (Late st Contact Info) Description 12/23/2017 Scanned Document [facility] Neurosurgery [place] [address] [facility] [address] [place] [phone] Garrison Varghese MD 35 [facility] 5 [place] [address] Social History Tobacco Use Types Packs/Day Years [...] on filedocumented in this encounter Care Teams Financial Investment Manager Relationship Specialty Start Date End Date Aramis Morales MD [address] [place] [id number] PCP - General Internal Medicine 03/16/17 documented as of this encounter
--- OUTSIDE RECORDS SUMMARY | 2025-06-25 11:10 | XMS_ITS | Encounter Summary ---
Author Organization [facility] Address [address] [place] [address] Care Team Providers Care Baler Operator Name Role Phone Aramis Morales MD Primary Care Provider [phone] Encounter Details Date Type Department Care Team (Late st Contact Info) Description 08/06/[address] [facility] Neurosurgery [address] [phone] Social History Tobacco Use Types [...] on filedocumented in this encounter Care Teams Baler Operator Relationship Specialty Start Date End Date Aramis Morales MD [address] [place] [address] PCP - General Internal Medicine 03/16/17 documented as of this encounter
--- OUTSIDE RECORDS SUMMARY | 2025-06-25 11:10 | XMS_ITS | Encounter Summary ---
Author Organization [facility] Address [address] [place] [address] Care Team Providers Care Hot Die Picker Name Role Phone Aramis Morales MD Primary Care Provider [phone] Encounter Details Date Type Department Care Team (Late st Contact Info) Description 01/18/2018 Scanned Document [facility] Neurosurgery [place] 35 [facility] 5 [place] [phone] Garrison Varghese MD 35 [facility] 5 [place] [address] Social History Tobacco Use Types Packs/Day Years [...] on filedocumented in this encounter Care Teams Hot Die Picker Relationship Specialty Start Date End Date Aramis Morales MD [address] [place] [id number] PCP - General Internal Medicine 03/16/17 documented as of this encounter
--- OUTSIDE RECORDS SUMMARY | 2025-06-25 11:10 | XMS_ITS | Encounter Summary ---
Author Organization [facility] Address [address] [place] [address] Care Team Providers Care Kettle Hand Name Role Phone Aramis Morales MD Primary Care Provider [phone] Encounter Details Date Type Department Care Team (Late st Contact Info) Description 07/10/2019 Scanned Document [facility] Neurosurgery [address] [phone] Social History Tobacco Use Types Packs/Day Years [...] on filedocumented in this encounter Care Teams Kettle Hand Relationship Specialty Start Date End Date Aramis Morales MD [address] [place] [address] PCP - General Internal Medicine 03/16/17 documented as of this encounter
== END 2025-06-25 10:08 | disposition home or self-care (01) ==
LOC: HO.PMC 09:27
PROVIDERS: PCP Physician Assistant; Referring Provider Physician Assistant Medical; Visit Provider Internal Medicine
DX: M54.16 Radiculopathy, lumbar region (principal); M54.51 Vertebrogenic low back pain; M51.362 Other intervertebral disc degeneration, lumbar region with discogenic back pain and lower extremity pain; M53.3 Sacrococcygeal disorders, not elsewhere classified
CPT/HCPCS: 99204